=== PATIENT | male | born 1950 | race Caucasian/White ===

== ENCOUNTER 2023-12-24 13:24 | Outpatient (AMB) | payer MEDICARE, SELFPAY ==
--- NOTE | 2023-12-24 13:27 | MHC.OFFVIS ---
Vital Signs 12/24/23 13:33 Height 5 ft 7 in Weight 194 lb BMI 30.4 BP 120/8 L Blood Pressure Location Rt brachial Pulse 70 Pulse Source Pulse Oximeter Pulse Oximetry (%) 98 Oxygen Delivery Method Room Air Intake Visit Reasons: ENP-Sleep Disorder-LVM Intake Note: Patient presents for sleep disorder. Allergies sulfamethoxazole [From Bactrim] Allergy (Verified 12/24/23 13:34) Unknown trimethoprim [From Bactrim] Allergy (Verified 12/24/23 13:34) Unknown Bee Stings Allergy (Unknown, Uncoded 12/24/23 13:34) Unknown HPI Comments Details: 73-yr-old male presents for new in-person patient visit for evaluation of parasomnias. PMH is notable for: Prostate cancer- currently undergoing radiation tx at [facility], Adrenal abnormality, CAD/HTN/HLD, JAROCHO, GERD Pt reports he started having sleep behaviors about 6 months ago. He would wake up yelling, moving, kicking, or pushing his away while using his CPAP. He has never left the bed in his sleep. His PCP started him on Melatonin 3-5mg qhs. The sleep behaviors stopped while on Melatonin, however he felt increased daytime grogginess, off-balance, cognitive cloudiness. He stopped Melatonin about 2 weeks ago, since his has noticed mumbling but no sleep behaviors. Pt is not interested in having a f/u in-lab PSG at this time as he does not sleep well during sleep studies and is currently undergoing prostate CA tx. Pt has used CPAP machine for approx 5 yrs for sleep apnea. Pt had recent f/u w/ Dr Sauceda, who told him his residual apneas were well-controlled. He had initial sleep study d/t snoring, but no longer snores when using CPAP. Per Dr Sauceda's note from November 2023- [employer]?air sense 11 auto?which is set at 6-16 cm H2O. Recent PAP compliance report showed: ? Days used: ,?days 4 hours plus: ,?average usage: 8.2 hours,?average pressure:?7.4 cm H2O, average leak: 7 L/min,?AHI: 0.0. Resp supplier is [employer]. Pt endorsees vivid dreams, rare leg cramp, being off-balance when turning, lightheadedness if he stands too quickly- started when he started carvedilol, hyposmia- for along time. Pt denies hypnogenic hallucinations, voice changes, tremors, constipation, memory issues, falls. Walks regularly. 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 Takes alcohol socially- not r/t the parasomnias. 12/22/2023, [facility], MR Brain (C-/C+) COMPARISON: None. FINDINGS: IAC: There is no mass or abnormal enhancement in the internal auditory canals or cerebellopontine angles. Course and caliber of the 7th and 8th cranial nerves is normal bilaterally. Fluid signal is preserved in the inner ear structures bilaterally. Brainstem demonstrates normal signal. BRAIN and EXTRA-AXIAL SPACES: No significant abnormality of the visualized portions of the brain and extra-axial spaces. EXTRACRANIAL SOFT TISSUES: Visualized portions of the extracranial soft tissues are unremarkable. BONES: Visualized marrow signal is preserved. IMPRESSION: No retrocochlear abnormality to explain the patient?s symptoms. [facility] Medical History (Updated 01/03/24 @ 16:08 by RADHA Armendariz) Hyperbilirubinemia Surgical History H/O cardiac catheterization History of total left knee replacement History of hydrocelectomy H/O colonoscopy Family History Father Congestive heart failure Social History (Updated 12/24/23 @ 13:34 by EMY Bauer) Alcohol intake: current Patient Tobacco Use Status: Never used Tobacco Review of Systems Const All systems reviewed & are unremarkable except as noted in HPI and below Physical Exam Vital Signs: Last Vital Signs Pulse 70 12/24/23 13:33 BP 120/8 L 12/24/23 13:33 Pulse Ox 98 12/24/23 13:33 Oxygen Delivery Method Room Air 12/24/23 13:33 BMI result Body Mass Index 30.4 Const General: no acute distress Resp Effort & Inspection: able to speak in complete sentences Neuro Other: A&O x's 3 Expression intact Soft, hoarse voice. No tremor No BUE tone. BUE STEW: slightly less fluid on right FFM- ok. Foot taps- ok Stands easily, slight stoop, steady gait, multiple steps to turn. Psych Mental Status: mental status grossly normal Speech and movement: Clear speech present Attitude: cooperative Assessment & Plan Assessment & Plan (1) Parasomnia: Code(s): G47.50 - Parasomnia, unspecified Category: Medical (2) Obstructive sleep apnea: Code(s): G47.33 - Obstructive sleep apnea (adult) (pediatric) Category: Medical Plan Discussed that pt's parasomnias do seem c/w REM sleep behaviors, especially as they are occurring despite optimal PAP tx tx. Reviewed that the presence of REM sleep behaviors does raise concern for future development of a neurodegenerative disorder such as Parkinson's, DLB dementia, or dementia. Pt does have some signs that may be seen in such disorders, such as hyposmia, soft/hoarse voice, gait imbalance upon turning- though this maybe multi-factorial. Reviewed brain MRI w/wo- no findings to account for pt's parasomnia s/s. Pt is not interested in additional testing, such as DaTscan, as he is focused on his prostate Ca tx at this time. Re-trial Melatonin at 1mg- try taking q evening, in hopes this alleviates residual am/daytime effects. Continue 6-16 cm H2O nightly > 4 hrs as pt has good clinical effect from use and low residual AHI. Pt does ask if we can manage his CPAP going forward, which we can do. Will request updated compliance data. Future considerations: Trial of low dose clonazepam. Follow-up in 6 months or sooner prn. Coding Level of Care Code New Pt Level 4 (68143) Diagnoses Parasomnia G47.50 Obstructive sleep apnea G47.33
[2023-12-24 13:33] VITALS: BP 120/8; PULSE 70; O2SAT 98; BMI 30.4
== END 2023-12-24 14:37 | disposition home or self-care (01) ==
PROVIDERS: PCP Internal Medicine; Visit Provider Nurse Practitioner Family
DX: G47.50 Parasomnia, unspecified (principal); G47.33 Obstructive sleep apnea (adult) (pediatric)
CPT/HCPCS: 99204

== ENCOUNTER → 2023-12-24 13:24 | Outpatient (BNVA) | payer MEDICARE, SELFPAY | PROVIDERS: PCP Internal Medicine; Visit Provider Nurse Practitioner Family | DX: G47.50 Parasomnia, unspecified (principal); G47.33 Obstructive sleep apnea (adult) (pediatric) | CPT/HCPCS: 99202 ==

== ENCOUNTER 2024-07-17 14:14 | Outpatient (AMB) | payer MEDICARE, SELFPAY ==
[2024-07-17 14:39] VITALS: BP 126/72; PULSE 84; O2SAT 97; BMI 30.7
--- NOTE | 2024-07-17 14:39 | A.OFFVIS_ITS ---
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 Since has felt more fatigue, hot flashes a/w moodiness. 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 He denies any interval parasomnias. Pt denies cognitive difficulties. Rarely may forget a name of an actor. No difficulties w/ returning to work. If he gets up and turns quickly, he will briefly feel off-balance. He has a h/o orthostatic lightheadedness r/t his carvedilol tx. Trying to make sure he is drinking enough water/fluids, as this helps. Sleeping better. Taking a chamomielle tea or a glass a wine a few evenings per week. Stopped Melatonin- as even with 1mg dose, he woke up feeling unwell. Patient reports he is compliant with his Pap therapy. He does have an adjustable bed, 12/24/23 Initial HPI: Pt reports he started having sleep behaviors about 6 months ago. He would wake up yelling, moving, kicking, or pushing his away while using his CPAP. He has never left the bed in his sleep. His PCP started him on Melatonin 3-5mg qhs. The sleep behaviors stopped while on Melatonin, however he felt increased daytime grogginess, off-balance, cognitive cloudiness. He stopped Melatonin about 2 weeks ago, since his has noticed mumbling but no sleep behaviors. Pt is not interested in having a f/u in-lab PSG at this time as he does not sleep well during sleep studies and is currently undergoing prostate CA tx. Pt has used CPAP machine for approx 5 yrs for sleep apnea. Pt had recent f/u w/ Dr Sauceda, who told him his residual apneas were well-controlled. He had initial sleep study d/t snoring, but no longer snores when using CPAP. Per Dr Sauceda's note from November 2023- [employer]?air sense 11 auto?which is set at 6- 16 cm H2O. Recent PAP compliance report showed: ? Days used: ,?days 4 hours plus: ,?average usage: 8.2 hours,?average pressure:?7.4 cm H2O, average leak: 7 L/min,?AHI: 0.0. Resp supplier is [employer]. Pt endorsees vivid dreams, rare leg cramp, being off-balance when turning, lightheadedness if he stands too quickly- started when he started carvedilol, hyposmia- for along time. Pt denies hypnogenic hallucinations, voice changes, tremors, constipation, memory issues, falls. Walks regularly. 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 Takes alcohol socially- not r/t the parasomnias. 12/22/2023, [facility], MR Brain (C-/C+) COMPARISON: None. FINDINGS: IAC: There is no mass or abnormal enhancement in the internal auditory canals or cerebellopontine angles. Course and caliber of the 7th and 8th cranial nerves is normal bilaterally. Fluid signal is preserved in the inner ear structures bilaterally. Brainstem demonstrates normal signal. BRAIN and EXTRA- AXIAL SPACES: No significant abnormality of the visualized portions of the brain and extra-axial spaces. EXTRACRANIAL SOFT TISSUES: Visualized portions of the extracranial soft tissues are unremarkable. BONES: Visualized marrow signal is preserved. IMPRESSION: No retrocochlear abnormality to explain the patient?s symptoms. [facility] Medical History (Updated 01/03/24 @ 16:08 by RADHA Armendariz) Hyperbilirubinemia Surgical History H/O cardiac catheterization History of total left knee replacement History of hydrocelectomy H/O colonoscopy Family History Father Congestive heart failure Social History Alcohol intake: current Patient Tobacco Use Status: Never used Tobacco Physical Exam Vital Signs: Last Vital Signs Pulse 84 07/17/24 14:39 BP 126/72 07/17/24 14:39 Pulse Ox 97 07/17/24 14:39 Oxygen Delivery Method Room Air 07/17/24 14:39 BMI result Body Mass Index 30.7 Const General: no acute distress Resp Effort & Inspection: able to speak in complete sentences Neuro Other: A&O x's 3 Expression intact Soft voice. No tremor No BUE tone. FFM- ok. Foot taps- ok Stands easily, slight stoop, steady gait. Psych Mental Status: mental status grossly normal Speech and movement: Clear speech present Attitude: cooperative Assessment & Plan Assessment & Plan (1) Parasomnia: Code(s): G47.50 - Parasomnia, unspecified Category: Medical (2) Obstructive sleep apnea: Code(s): G47.33 - Obstructive sleep apnea (adult) (pediatric) Category: Medical Plan Pt denies interval parasomnias. He has stopped Melatonin- not tolerated. December 2023 brain MRI w/wo- no findings to account for pt's parasomnia s/s. Continue to monitor parasomnias despite optimal PAP tx, which do appear to be c/w REM sleep behaviors, as well as hyposmia, soft/hoarse voice, gait imbalance upon turning. Reviewed again that REM sleep behaviors can be seen up to 12 or 15 years prior to the development of a neurodegenerative disorder such as Parkinson's, DLB dementia, or dementia. Continue APAP 6-16 cm H2O nightly > 4 hrs as pt has good clinical effect from use and low residual AHI. Will request updated PAP compliance data. Future considerations: Trial of low dose clonazepam. Follow-up in 6 months or sooner prn. Coding Level of Care Code Est Pt Level 3 (93289) Diagnoses Parasomnia G47.50 Obstructive sleep apnea G47.33
--- OUTSIDE RECORDS SUMMARY | 2024-07-19 16:06 | XMS_ITS | Continuity of Care Document ---
Author Organization [place] - [facility] Address [address] [address] Assessment Encounter Date Assessment Date Assessment LastModified by Organization Details LastModified Time 04/26/2024 04/26/2024 Patient's hearing remains essentially stable and reprogramming is not recommended at this time given the patient's satisfaction with sound quality. The devices were previously programmed using the Audioscan Best Bidit hearing aid analyzer and real-ear verification was not repeated today. Hearing devices were noted to be generally free of debris. Using a listening scope, the string laster & microphone were found to be in working order. The microphones were functioning without any abberant noise or artifact. Reviewed with patient the importance of annual appointments to ensure that the devices are working to their best potential and to rule out any changes in hearing or need to reprogram the devices. Urgent visits can always be requested or the patient can also utilize our drop-off repair program. Patient is interested in trying the new CROS which is on order raquel ARROYO. Follow up for fitting. [email or web address] Not available 04/26/2024 16:07:07 Plan of Treatment Reminders Order Date Submit Date Provider Last Modified By Organization Details Last Modified Time Details Appointments None record ed. Lab None record ed. Referral None record ed. Procedures None record ed. Surgeries None record ed. Imaging None record ed. Medication Orders None record ed. Patient TargetsNo targets recorded. Patient InstructionsNo instructions recorded. Reason for Referral None Reported. Results Created Date Observation Date Name Description Value Unit Range Abnormal Flag Note LastModifiedBy Organization Detail LastModifiedTime 03/29/2005/02/2019 imagi ng/di agnos tic resul t No observ ation record ed. [email or web address] Not Available 05:41:51 03/29/2005/22/2020 imagi ng/di agnos tic resul t No observ ation record ed. [email or web address] Not Available 05:42:09 03/29/2005/26/2023 imagi ng/di agnos tic resul t No observ ation record ed. [email or web address] Not Available 05:42:10 03/29/2005/28/2021 imagi ng/di agnos tic resul t No observ ation record ed. [email or web address] Not Available 05:42:13 03/29/2006/03/2022 imagi ng/di agnos tic resul t No observ ation record ed. [email or web address] Not Available 05:42:15 03/29/20 24 11/05/2021 audio gram No observ ation record ed. [email or web address] Not Available 05:42:17 03/29/20 24 11/17/2021 audio gram No observ ation record ed. [email or web address] Not Available 05:42:18 03/29/20 24 12/03/2021 audio gram No observ ation record ed. [email or web address] Not Available 05:42:24 03/29/20 24 05/02/2019 audio gram No observ ation record ed. [email or web address] Not Available 05:42:26 03/29/20 24 05/22/2020 audio gram No observ ation record ed. [email or web address] Not Available 05:42:37 03/29/20 24 05/26/2023 audio gram No observ ation record ed. [email or web address] Not Available 05:42:38 03/29/20 24 05/28/2021 audio gram No observ ation record ed. [email or web address] Not Available 05:42:39 03/29/20 24 06/03/2022 audio gram No observ ation record ed. [email or web address] Not Available 05:42:40 04/27/20 24 audio gram No observ ation record ed. [email or web address] Not Available 2023 15:14:54 Result Notes None recorded. Problems Name Problem SNOMED Code Status Onset Date Resolution Date Notes Provider Name and Address Organization Details Recorded Time Disorder of right Eustachia n tube 93973679772 59958 Active 2016 Other specified disorders of Eustachia n tube, right ear; Note: Date Diagnosed : 09/28/2016 10:11 AM (H69.81) Not Available [facility] 4 02:21:49 Cough 07299716 Active 2015 Cough; Note: Date Diagnosed : 6 8:30 AM (R05) Not Available [facility] 4 02:22:08 Mixed conductiv e and sensorine ural hearing loss of right ear 49640753464 105 Active 2016 Mixed conductiv e and sensorine ural hearing loss, unilatera l, right ear with restricte d hearing on the contralat eral side; Note: Date Diagnosed : 09/28/2016 10:11 AM (H90.A31) Not Available [facility] 4 02:22:15 Sensorine ural hearing loss of bilateral ears 108418999 Active 2014 Sensorine ural hearing loss, bilateral ; Note: Date Diagnosed : 5 8:45 AM (H90.3) Not Available [facility] 4 02:21:38 Posterior rhinorrhe a 24361387 Active 2015 Postnasal drip; Note: Date Diagnosed : 6 8:30 AM (R09.82) Not Available [facility] 4 02:22:02 Unilatera l sensorine ural hearing loss with unrestric mabel hearing on the contralat eral side Active 2014 Sensorine ural HL, unilatera l; Note: Date Diagnosed : 12/28/2014 2:16 PM (389.15) Not Available [facility] 4 02:22:05 Chronic rhinitis 53258181 Active 2015 Chronic rhinitis; Note: Date Diagnosed : 6 9:04 AM (J31.0) Not Available [facility] 4 02:21:56 Deviated nasal septum 549474348 Active 2015 Deviated nasal septum; Note: Date Diagnosed : 6 8:30 AM (J34.2) Not Available [facility] 4 02:21:56 Essential hypertens ion 94548124 Active 2023 Essential (primary) hypertens ion; Note: Date Diagnosed : 11/22/2023 1:35 PM (I10) Not Available [facility] 4 02:22:04 Dizziness and giddiness 072296484 Active 2023 Light-hea dedness; Note: Date Diagnosed : 11/22/2023 1:34 PM (R42) Not Available [facility] 4 02:22:09 Problem Notes None recorded. Procedures Surgical History Date Name Laterality Status Provider Name and Address Organization Details Recorded Time 4 Air only Audio (34528) completed VIK SHELTON, [address], [address], [facility] 04/26/2024 16:07:10 4 SRT & Speech Recognition (47969) completed VIK SHELTON [address], [address], [facility] 04/26/2024 16:07:16 Imaging Results None recorded. Procedure Notes None recorded. Medical Equipment None Reported. Allergies Allergen ID Allergen Name Allergen Category Reaction Reaction Severity Criticality Documentation Date Start Date Code Code System Note Provider Name and Address Organization Details Recorded Time 40657 melatonin medicatio n other Not available Not available 12/21/2023 6711 RxNorm React ion: other react ion, Unkno wn; Not Available [facility] 4 00:52:31 99725 Bactrim medicatio n other Not available Not available 12/21/2023 72978 9 RxNorm React ion: other react ion, Unkno wn; Not Available [facility] 4 00:52:40 Medications Name Sig Start Date Stop Date Status Note LastModified by Organization Details LastModified Time carvedilo l 6.25 mg tablet 2019 active Medicati on ID: [id number] B rand Name: carvedil ol Send Method: E-Prescr ibed Sub s Allowed: subs OK Medic ationGen ericName : carvedil ol Not Available Not Available Not Available cetirizin e 10 mg tablet TAKE 1 TABLET BY MOUTH DAILY active Not Available Not Available No t Available Elton Low Dose Aspirin 81 mg tablet,de layed release active Medicati on ID: [id number] B rand Name: Aspirin Low Dose Sen d Method: E-Prescr ibed Sub s Allowed: subs OK Medic ationGen ericName : Aspirin Low Dose Not Available Not Available Not Available amlodipin e 2.5 mg tablet TAKE 1 TABLET BY MOUTH DAILY active Not Available Not Available No t Available melatonin 3 mg tablet TAKE 1 tablet by MOUTH AT bedtime MAY INCREASE by 3 MG steps UNTIL REM SLEEP disorder resolved TO A max DOSE OF 15 MG] active Not Available Not Available No t Available chlorthal idone 25 mg tablet 2019 active Medicati on ID: [id number] B rand Name: chlortha lidone S end Method: E-Prescr ibed Sub s Allowed: subs OK Medic ationGen ericName : chlortha lidone Not Available Not Available Not Available amlodipin e 5 mg tablet 05/22 completed Medicati on ID: [id number] B rand Name: amlodipi ne Send Method: E-Prescr ibed Sub s Allowed: subs OK Medic ationGen ericName : amlodipi ne Not Available Not Available Not Available ciproflox acin 500 mg tablet active Medicati on ID: [id number] B rand Name: ciproflo xacin HCl Send Method: E-Prescr ibed Sub s Allowed: subs OK Medic ationGen ericName : ciproflo xacin HCl Not Available Not Available Not Available omeprazol e 40 mg capsule,d elayed release 2019 active Medicati on ID: [id number] B rand Name: omeprazo le Send Method: E-Prescr ibed Sub s Allowed: subs OK Medic ationGen ericName : omeprazo le Not Available Not Available Not Available carvedilo l 3.125 mg tablet TAKE 1 TABLET BY MOUTH TWICE DAILY active Not Available Not Available No t Available potassium chloride ER 20 mEq tablet,ex tended release(p art/cryst ) 2019 active Medicati on ID: [id number] B rand Name: lela damon chloride Send Method: E-Prescr ibed Sub s Allowed: subs OK Medic ationGen ericName : lela damon chloride Not Available Not Available Not Available tamsulosi n 0.4 mg capsule TAKE 1 CAPSULE BY MOUTH DAILY active Not Available Not Available No t Available cephalexi n 500 mg capsule TAKE 1 CAPSULE BY MOUTH 4 TIMES DAILY FOR 7 DAYS active Not Available Not Available No t Available nitroglyc suni 0.4 mg sublingua l tablet TAKE 1 tablet under the tongue Every 5 minutes as needed for chest pain; not to exceed 3 doses/15 min--if pain persists , seek medical attentio n active Not Available Not Available No t Available sertralin e 25 mg tablet TAKE 1 TABLET BY MOUTH DAILY active Not Available Not Available No t Available omeprazol e 20 mg capsule,d elayed release TAKE 1 CAPSULE BY MOUTH TWICE DAILY active Not Available Not Available No t Available mupirocin 2 % topical ointment APPLY 1 applicat ion Topicall y 3 times a day,x10 days active Not Available Not Available No t Available lisinopri l 40 mg tablet 05/22 completed Medicati on ID: [id number] D uration Value: 90 Brand Name: lisinopr il Send Method: E-Prescr ibed Sub s Allowed: subs OK Speci al Instruct ion: TAKE 1 TABLET BY MOUTH DAILY Me dication GenericN bryn: lisinopr il Not Available Not Available Not Available losartan 100 mg tablet TAKE 1 TABLET BY MOUTH DAILY active Not Available Not Available No t Available eplerenon e 50 mg tablet TAKE 1 TABLET BY MOUTH DAILY active Not Available Not Available No t Available ezetimibe 10 mg tablet TAKE 1 TABLET BY MOUTH DAILY active Not Available Not Available No t Available rosuvasta tin 40 mg tablet TAKE 1 TABLET BY MOUTH DAILY active Not Available Not Available No t Available melatonin 1 mg tablet take 1 tablet (1 mg) at bedtime and every 7 days increase by one mg/dose until sleep disturba nce resolved active Not Available Not Available No t Available hydrochlo rothiazid e Take 1 tablet by mouth once a day 05/22 completed Medicati on ID: [id number] D uration Value: 30 Brand Name: hydrochl orothiaz dior Send Method: E-Prescr ibed Sub s Allowed: subs OK Medic ationGen ericName : hydrochl orothiaz dior Not Available Not Available Not Available salsalate 05/22 completed Medicati on ID: [id number] B rand Name: salsalat e Send Method: E-Prescr ibed Sub s Allowed: subs OK Medic ationGen ericName : salsalat e Not Available Not Available Not Available Centrum Silver 05/22 completed Medicati on ID: [id number] B rand Name: centrum silver S end Method: E-Prescr ibed Sub s Allowed: subs OK Medic ationGen ericName : centrum silver Not Available Not Available Not Available Ecotrin Low Strength 05/22 completed Medicati on ID: [id number] B rand Name: Ecotrin low strength Send Method: E-Prescr ibed Sub s Allowed: subs OK Medic ationGen ericName : Ecotrin low strength Not Available Not Available Not Available Crestor 05/22 completed Medicati on ID: [id number] B rand Name: crestor Send Method: E-Prescr ibed Sub s Allowed: subs OK Medic ationGen ericName : crestor Not Available Not Available Not Available Lovaza 05/22 completed Medicati on ID: [id number] B rand Name: lovaza S end Method: E-Prescr ibed Sub s Allowed: subs OK Medic ationGen ericName : lovaza Not Available Not Available Not Available Vitamin D3 50 mcg (2,000 unit) capsule 05/22 completed Medicati on ID: [id number] B rand Name: Vitamin D3 Send Method: E-Prescr ibed Sub s Allowed: subs OK Medic ationGen ericName : Vitamin D3 Not Available Not Available Not Available Flonase Allergy Relief 50 mcg/actua tion nasal spray,cali pension 05/22 completed Medicati on ID: [id number] B rand Name: Flonase Allergy Relief S end Method: E-Prescr ibed Sub s Allowed: subs OK Medic ationGen ericName : Flonase Allergy Relief Not Available Not Available Not Available Vitals None Recorded Social History None recorded. Functional Status None recorded. Mental Status None recorded. Family History Nothing Reported. Medical History No medical history recorded. Past Encounters Encounter ID Performer Location Encounter Start Date Encounter Closed Date Diagnosis/Indication Diagnosis SNOMED-CT Code Diagnosis ICD10 Code [id number] [facility]ameka [facility]NE [facility] [address] [place] [address] 04/05/2024 16:12:26 04/06/2024 07:09:56 Sensorineural hearing loss of bilateral ears [id number] H90.3 [id number] Tameka BROWNE [facility] [place] 100 [facility], [facility] 100 [place] [address] 04/26/2024 14:52:59 04/27/2024 07:09:45 Sensorineural hearing loss of bilateral ears [id number] H90.3 Health Concerns Section Related Observation LastModified by Organization Detai ls LastModified Time None Recorded Concern Status LastModified by Organization Details LastModified Time None Recorded Payers Encounter Date Sequence Insurance Name Policy Number Policy Miller Covered Member ID Miller Member ID Guarantor Name 04/26/2024 1 [place]: [employer] Deejay Gonsalez [id number] Deejay Gonsalez 04/26/2024 2 [facility] (MEDICARE SUPPLEMENT) Deejay Wallace [id number] Deejay Gonsalez Notes Date Note Type Note Provider Name and Address Organization Details Recorded Time 04/26/2024 text/html Patient returned for their annual fitting of amplification. They {{reported a change in their hearing ability.* reported stable hearing.}} There was no concern regarding the {{hearing devices* hearing device}} and the system was reported to be in working order. Tameka BROWNE [address] [facility],[place] [address], [place], [address], [facility] - [facility] 04/26/2024 16:07:49
--- OUTSIDE RECORDS SUMMARY | 2024-07-19 16:06 | XMS_ITS | Continuity of Care Document ---
Author Organization [facility] Address [address] [place] [address] Phone Care Team Providers Care Chief Power Dispatcher Name Role Phone Enrrique Hernandez MD Unavailable [...] in the morning Not Available - Active [place] 5 mg-325 mg tablet take 1 tablet [...] - In itial Vein Vasc Embo-w/Imaging,venous ANGIOGRAPHY COUTURE ALTERATIONS DRESSMAKER TRANSCATH INTRO IV STENT TRANSCATH THERAPY EMBOLIZATION 15 To Be Coded ARTERIOVENOUS SHUNT W/ IMAGING 14 Vasc Embo-w/Imaging,venous VENOGRAPHY EXT UNILAT TRANSCATH THERAPY EMBOLIZATION 14 CONSCIOUS SEDATION SELECT CATH PLCMNT VENOUS 1ST 4 To Be Coded ARTERIOVENOUS SHUNT W/ IMAGING 14 ARTERIOVENOUS SHUNT 2ND ACCESS W/IMAGING SELECT CATH PLCMNT ART INIT 2ND 014 ANGIOPLASTY PERC VENOUS Vasc Embo-w/Imaging,venous ANGIO EXTREMITY UNILAT ANGIOGRAPHY COUTURE ALTERATIONS DRESSMAKER TRANSCATH THERAPY EMBOLIZATION 14 To Be Coded [...] Diagnoses Date Provider Providers Copied on Encounter [facility], [address] [place] [address], [id number], [place] tel:[phone] [facility] End stage renal diseaseTo Be Coded 5 Mary Osuna. [address] [place] [address], [id number], [place]. tel:[phone] Referring Provider: Gaudencio Quintana, [address], [address]. tel:[phone] [facility], [address] [place] [address], [id number], [place] tel:[phone] [facility] No Information 5 Bob Sanford. [address] [place] [address], [id number]. tel:[phone] Referring Provider: Gaudencio Quintana, [address] [address], [place], [address]. tel:[phone] OFFICE/OUTPATI ENT VISIT, EST [facility], [address] [place] [address], [id number], [place] tel:[phone] [facility] evaluation for AV-fistula creation (chief complaint) No Information 5 Jose D Villalba. [address] [place] [address], [address], [place], [id number], [place]. tel:[phone] Referring Provider: Gaudencio Quintana, [address] [address], [place], [address]. tel:[phone] [facility], [address] [place] [address], [id number], [place] tel:[phone] [facility] No Information 5 Melinda Villalba. [address] [place] [address], [id number]. tel:[phone] Referring Provider: Gaudencio Quintana, [address] [address], [place], [address]. tel:[phone] [facility], [address] [place] [address], [id number], [place] tel:[phone] [facility] No Information 4 Melinda Villalba. [address] [place] [address], [id number]. tel:[phone] Referring Provider: Gaudencio Quintana, [address] [address], [place], [address]. tel:[phone] [facility], [address] [place] [address], [id number], [place] tel:[phone] No Information 4 Mary Osuna. [address] [place] [address], [id number], [place]. tel:[phone] Referring Provider: Gaudencio Quintana, [address] [facility] [address], [place], [address]. tel:[phone] [facility], [address] [place] [address], [id number], [place] [phone] [facility] No Information 4 Jose D Villalba. [address] [place] [address], [address] [place] [address], [id number], [place]. tel:[phone] Referring Provider: Gaudencio Quintana, [address] [address], [place], [address]. tel:[phone] [facility], [address] [place] [address], [id number], [place] tel:[phone] [facility] No Information 4 Jose D Villalba. [address] [place] [address], [address] [place] [address], [id number], [place]. tel:[phone] Referring Provider: Gaudencio Quintana, [address] [address], [place], [address]. tel:[phone] Office visit, new patient - comprehensive moderate [facility], [address] [place] [address], [id number], [place] tel:[phone] [facility] End Stage Renal Disease (chief complaint) No Information 4 Jose D Villalba. [address] [place] [address], [address] [place] [address], [id number], [place]. tel:[phone] Referring Provider: Guadencio Quintana, [address] [address], [place], [address]. tel:[phone] [facility], [place], [address] [place] [address], [id number], [place] tel:[phone] [facility] No Information 4 Tavia Edmond. [address] [place] [address], [id number], [place]. tel:[phone] Referring Provider: Gaudencio Quintana, [address] [place] [address], [id number]. tel:[phone] Family History Family Member Type Diagnosis Age At Onset No Information Immunizations Vaccine Date Status Comments pneumo (2 yrs or older) (PPV23) administered Note: Previously Giv en ; Source: New Immunization Record pneumo (2 yrs or older) (PPV23) administered Note: Previously Giv en ; Source: New Immunization Record Payers Payer name Insurance type Covered constitution party ID Authoriza tion(s) No Information Social [...]
--- OUTSIDE RECORDS SUMMARY | 2024-07-19 16:06 | XMS_ITS | Continuity of Care Document ---
Author Organization [place] - [facility] Address [address] [address] Assessment Encounter Date Assessment Date Assessment LastModified by Organization Details LastModified Time 05/17/2024 05/17/2024 The devices were programmed wirelessly using the chemical research technician's software in [facility]. We reviewed using real-ear verification and adjusting the settings to best match the patient's hearing needs in order to obtain the best outcome. Real ear not performed since this system is not amplifying sound and there is no need to reference amplification targets. The patient's concerns about using the devices were discussed. We reviewed the device options and what accessories are included. Reviewed features such as bluetooth, adjusting the volume control, and the use of a multimemory button for additional programs. Changing the wax filter was demonstrated. At the end of the visit, the patient practiced insertion/remova l and reported no pain or discomfort. Follow up in two to four weeks to discuss progress and address any concerns. The patient was also encouraged to utilize our drop-off servicing system in the unfortunate event that something happens to their device and/or to contact me through phone or email at their convenience. [email or web address] Not available 05/17/2024 08:49:24 Plan of Treatment Reminders Order Date Submit [...] Abnormal Flag Note LastModifiedBy Organization Detail LastModifiedTime 04/27/20 24 audio gram No observ ation record ed. BARCODE Not Available 2023 15:14:54 Result Notes None recorded. Problems Name Problem SNOMED Code Status Onset Date Resolution Date Notes Provider Name and Address Organization Details Recorded Time Disorder of right Eustachia n tube 65293045575 46225 Active 2016 Other specified disorders of Eustachia n tube, right ear; Note: Date Diagnosed : 09/28/2016 10:11 AM (H69.81) Not Available [facility] 4 02:21:49 Cough 39823678 Active 2015 Cough; Note: Date Diagnosed : 6 8:30 AM (R05) Not Available [facility] 4 02:22:08 Mixed conductiv e and sensorine ural hearing loss of right ear [id number] 105 Active 2016 Mixed conductiv e and sensorine ural hearing loss, unilatera l, right ear with restricte d hearing on the contralat eral side; Note: Date Diagnosed : 09/28/2016 10:11 AM (H90.A31) Not Available [facility] 4 02:22:15 Sensorine ural hearing loss of bilateral ears 428361817 Active 2014 Sensorine ural hearing loss, bilateral ; Note: Date Diagnosed : 5 8:45 AM (H90.3) Not Available [facility] 4 02:21:38 Posterior rhinorrhe a 96459182 Active 2015 Postnasal drip; Note: Date Diagnosed : 6 8:30 AM (R09.82) Not Available Counts include 234 beds at the [facility] 4 02:22:02 Unilatera l sensorine ural hearing loss with unrestric mabel hearing on the contralat eral side Active 2014 Sensorine ural HL, unilatera l; Note: Date Diagnosed : 12/28/2014 2:16 PM (389.15) Not Available [facility] 4 02:22:05 Chronic rhinitis 42139678 Active 2015 Chronic rhinitis; Note: Date Diagnosed : 6 9:04 AM (J31.0) Not Available [facility] 4 02:21:56 Deviated nasal septum 913341888 Active 2015 Deviated nasal septum; Note: Date Diagnosed : 6 8:30 AM (J34.2) Not Available Counts include 234 beds at the [facility] 4 02:21:56 Essential hypertens ion 24488623 Active 2023 Essential (primary) hypertens ion; Note: Date Diagnosed : 11/22/2023 1:35 PM (I10) Not Available Counts include 234 beds at the [facility] 4 02:22:04 Dizziness and giddiness 584154881 Active 2023 Light-hea dedness; Note: Date Diagnosed : 11/22/2023 1:34 PM (R42) Not Available Counts include 234 beds at the [facility] 4 02:22:09 Problem Notes None recorded. Procedures Surgical History Date Name Laterality Status Provider Name and Address Organization Details Recorded Time 4 Air only Audio (32498) completed VIK SHELTON, [facility] [address] [facility],[place] [address], [place], [address], [facility] 04/26/2024 16:07:10 4 SRT & Speech Recognition (14259) completed VIK SHELTON, [place] [address] [facility],[place] [address], [place], [address], [facility] 04/26/2024 16:07:16 Imaging Results None recorded. Procedure Notes None recorded. Medical Equipment None Reported. Allergies Allergen ID Allergen Name Allergen Category Reaction Reaction Severity Criticality Documentation Date Start Date Code Code System Note Provider Name and Address Organization Details Recorded Time 34510 melatonin medicatio n other Not available Not available 12/21/2023 6711 RxNorm React ion: other react ion, Unkno wn; Not Available Counts include 234 beds at the [facility] 4 00:52:31 17157 Bactrim medicatio n other Not available Not available 12/21/2023 10614 9 RxNorm React ion: other react ion, Unkno wn; Not Available Counts include 234 beds at the [facility] 4 00:52:40 Medications Name Sig Start Date Stop Date Status Note LastModified by Organization Details LastModified Time carvedilo l 6.25 mg tablet 2019 active Medicati on ID: [id number] B rand Name: carvedil ol Send Method: E-Prescr ibed Sub s Allowed: subs OK Medic ationGen ericName : carvedil ol Not Available Not Available Not Available cetirizin e 10 mg tablet TAKE 1 TABLET BY MOUTH DAILY active Not Available Not Available No t Available Elton Low Dose Aspirin 81 mg tablet,de layed release active Medicati on ID: 457248 B rand Name: Aspirin Low Dose Sen [...] mg tablet 2019 active Medicati on ID: [id number] B rand Name: chlortha lidone S end Method: E-Prescr ibed Sub s Allowed: subs OK Medic ationGen ericName : chlortha lidone Not Available Not Available Not Available amlodipin e 5 mg tablet 05/22 completed Medicati on ID: [id number] B rand Name: amlodipi ne Send Method: E-Prescr ibed Sub s Allowed: subs OK Medic ationGen ericName : amlodipi ne Not Available Not Available Not Available ciproflox acin 500 mg tablet active Medicati on ID: [id number] B rand Name: ciproflo xacin HCl Send Method: E-Prescr ibed Sub s Allowed: subs OK Medic ationGen ericName : ciproflo xacin HCl Not Available Not Available Not Available omeprazol e 40 mg capsule,d elayed release 2019 active Medicati on ID: [id number] B rand Name: omeprazo le Send Method: E-Prescr ibed Sub s Allowed: subs OK Medic ationGen ericName : omeprazo le Not Available Not Available Not Available carvedilo l 3.125 mg tablet TAKE 1 TABLET BY MOUTH TWICE DAILY active Not Available Not Available No t Available potassium chloride ER 20 mEq tablet,ex tended release(p art/cryst ) 2019 active Medicati on ID: [id number] B rand Name: potassiu m chloride Send Method: E-Prescr ibed Sub s Allowed: subs OK Medic [facility] ericName : lela damon chloride Not Available [...] mg tablet 05/22 completed Medicati on ID: [id number] D uration Value: 90 Brand Name: lisinopr [...] a day 05/22 completed Medicati on ID: [id number] D uration Value: 30 Brand Name: hydrochl orothiaz dior Send Method: E-Prescr ibed Sub s Allowed: subs OK Medic ationGen ericName : hydrochl orothiaz dior Not Available Not Available Not Available salsalate 05/22 completed Medicati on ID: [id number] B rand Name: salsalat e Send Method: E-Prescr ibed Sub s Allowed: subs OK Medic ationGen ericName : salsalat e Not Available Not Available Not Available Centrum Silver 05/22 completed Medicati on ID: [id number] B rand Name: centrum silver S end Method: E-Prescr ibed Sub s Allowed: subs OK Medic ationGen ericName : centrum silver Not Available Not Available Not Available Ecotrin Low Strength 05/22 completed Medicati on ID: [id number] B rand Name: Ecotrin low strength Send Method: E-Prescr ibed Sub s Allowed: subs OK Medic ationGen ericName : Ecotrin low strength Not Available Not Available Not Available Crestor 05/22 completed Medicati on ID: [id number] B rand Name: crestor Send Method: E-Prescr ibed Sub s Allowed: subs OK Medic ationGen ericName : crestor Not Available Not Available Not Available Lovaza 05/22 completed Medicati on ID: [id number] B rand Name: lovaza S end Method: E-Prescr ibed Sub s Allowed: subs OK Medic ationGen ericName : lovaza Not Available Not Available Not Available Vitamin D3 50 mcg (2,000 unit) capsule 05/22 completed Medicati on ID: [id number] B rand Name: Vitamin D3 Send Method: E-Prescr ibed Sub s Allowed: subs OK Medic ationGen ericName : Vitamin D3 Not Available Not Available Not Available Flonase Allergy Relief 50 mcg/actua tion nasal spray,cali pension 05/22 completed Medicati on ID: [id number] B rand Name: Flonase Allergy Relief S [...] Diagnosis/Indication Diagnosis SNOMED-CT Code Diagnosis ICD10 Code [id number] Tameka BROWNE [place]RIQUEZ - [place] [address] [facility],[address] [place] [address] 04/26/2024 14:52:59 04/27/2024 07:09:45 Sensorineural hearing loss of bilateral ears [id number] H90.3 [id number] Tameka BROWNE [place]RIQUEZ - [place] [address] [facility],[address] [place] [address] 05/17/2024 09:49:20 05/17/2024 15:59:27 Sensorineural hearing loss of bilateral ears [id number] H90.3 Health Concerns Section Related Observation LastModified by Organization Detai ls LastModified Time None Recorded Concern Status LastModified by Organization Details LastModified Time None Recorded Payers Encounter Date Sequence Insurance Name Policy Number Policy Miller Covered Member ID Miller Member ID Guarantor Name 05/17/2024 1 MEDICARE [place]: [employer] Deejay Gonsalez [id number] Deejay Gonsalez 05/17/2024 2 [facility] [employer] OPTIONS (MEDICARE SUPPLEMENT) Deejay Gonsalez [id number] Deejay Gonsalez Notes Date Note Type Note Provider Name and Address Organization Details Recorded Time 05/17/2024 text/html Patient returned for an orientation fitting of {{hearing devices a hearing device in the right ear a hearing device in the left ear CROS hearing system#}}. They are {{a first time user a longstanding user of amplification a longstanding user of these devices#}}. They reported significant difficulty communicating and understanding speech and {{hearing devices were* the hearing device was}} ordered through a 3rd democrat vendor to be fitted at our office. The patient had selected this make and model for their lifestyle and audiological needs. Tameka BROWNE [address] [facility] [address], [place], [address], [facility] - [facility] 05/17/2024 11:47:26
== END 2024-07-17 15:48 | disposition home or self-care (01) ==
PROVIDERS: PCP Internal Medicine; Visit Provider Nurse Practitioner Family
DX: G47.50 Parasomnia, unspecified (principal); G47.33 Obstructive sleep apnea (adult) (pediatric)
CPT/HCPCS: 99213

== ENCOUNTER → 2024-07-17 14:14 | Outpatient (BNVA) | payer MEDICARE, SELFPAY | PROVIDERS: PCP Internal Medicine; Visit Provider Nurse Practitioner Family | DX: G47.50 Parasomnia, unspecified (principal); G47.33 Obstructive sleep apnea (adult) (pediatric) | CPT/HCPCS: 99212 ==

== ENCOUNTER 2025-01-16 14:04 | Outpatient (AMB) | payer MEDICARE, SELFPAY ==
--- NOTE | 2025-01-16 14:17 | MHC.OFFVIS ---
Vital Signs 01/16/25 14:19 Height 5 ft 7 in Weight 193 lb BMI 30.2 BP 120/82 Blood Pressure Location Lt brachial Position Sitting Pulse 84 Pulse Source Pulse Oximeter Pulse Oximetry (%) 95 Oxygen Delivery Method Room Air Intake Visit Reasons: 6 Month F/U Intake Note: Patient presents 6 month follow up for JAROCHO. Accompanied by: Self / Same As Patient Allergies sulfamethoxazole [From Bactrim] Allergy (Verified 01/16/25 14:22) Unknown trimethoprim [From Bactrim] Allergy (Verified 01/16/25 14:22) Unknown Bee Stings Allergy (Unknown, Uncoded 12/24/23 13:34) Unknown HPI Comments Details: 74-yr-old male presents for f/u of parasomnias w/ PMH is notable for: Prostate CA- s/p Rx tx in 2023- managed by [facility], Adrenal abnormality, CAD/HTN/HLD, JAROCHO, GERD Pt reports he has continued his Prostate CA tx- s/p radiation tx and had his last scheduled hormonal tx- however going forward the hormonal tx will be given based on future PSA levels. . Pt is now undergoing tx for bilateral nephrolithesis, underwent a right stone extraction/temporary stent placement, and then after the stent was removed, he had UTI, and ultimately had another temporary stent placement. He states they are hoping to be able to tx the left kidney stone w/ lithrotripsy. He notes that he has some ureter adhesions/stricture d/t the h/o radiation tx. Pt also has been having rectal bleeding- this is suspected to be d/t rectal proctitis also d/t the Rx tx. Can have some constipation but also some loose stools. GI started him on metamucil which seems to be helping. He is scheduled for a colonoscopy to further assess. F/B SANDRA ECHEVARRIA at [facility]. He is using his CPAP regularly and has an adjustable bed, but he notes that he is waking up every 2 hours to void since he had the ureter stent placement- and thus is a bit more tired than usual. He does note that he is still dreaming. He denies any interval parasomnias. 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 Pt denies cognitive difficulties. Rarely may forget a name of an actor. If he stands up and turns quickly, he will briefly feel off-balance. He has a h/o orthostatic lightheadedness r/t his carvedilol tx. Trying to make sure he is drinking enough water/fluids, as this helps. He notes that he has a tendency to stand up and move quickly. Has not had a good sense of smell for years. He has chronic sinus/allergic rhinitis s/s- f/b ENT Dr Santana. Lives with his . He has been trying to walk slowly on the treadmill- prior to the kidney stone issues. Denies tremor, stiffness, leg cramps. Previously stopped Melatonin- as even with 1mg dose, he woke up feeling unwell. 12/24/23 Initial HPI: Pt reports he started having sleep behaviors about 6 months ago. He would wake up yelling, moving, kicking, or pushing his away while using his CPAP. He has never left the bed in his sleep. His PCP started him on Melatonin 3-5mg qhs. The sleep behaviors stopped while on Melatonin, however he felt increased daytime grogginess, off-balance, cognitive cloudiness. He stopped Melatonin about 2 weeks ago, since his has noticed mumbling but no sleep behaviors. Pt is not interested in having a f/u in-lab PSG at this time as he does not sleep well during sleep studies and is currently undergoing prostate CA tx. Pt has used CPAP machine for approx 5 yrs for sleep apnea. Pt had recent f/u w/ Dr Sauceda, who told him his residual apneas were well-controlled. He had initial sleep study d/t snoring, but no longer snores when using CPAP. Per Dr Sauceda's note from November 2023- [employer]?air sense 11 auto?which is set at 6-16 cm H2O. Recent PAP compliance report showed: ? Days used: ,?days 4 hours plus: ,?average usage: 8.2 hours,?average pressure:?7.4 cm H2O, average leak: 7 L/min,?AHI: 0.0. Resp supplier is Elena. Pt endorsees vivid dreams, rare leg cramp, being off-balance when turning, lightheadedness if he stands too quickly- started when he started carvedilol, hyposmia- for along time. Pt denies hypnogenic hallucinations, voice changes, tremors, constipation, memory issues, falls. Walks regularly. 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 Takes alcohol socially- not r/t the parasomnias. 12/22/2023, [facility], MR Brain (C-/C+) COMPARISON: None. FINDINGS: IAC: There is no mass or abnormal enhancement in the internal auditory canals or cerebellopontine angles. Course and caliber of the 7th and 8th cranial nerves is normal bilaterally. Fluid signal is preserved in the inner ear structures bilaterally. Brainstem demonstrates normal signal. BRAIN and EXTRA-AXIAL SPACES: No significant abnormality of the visualized portions of the brain and extra-axial spaces. EXTRACRANIAL SOFT TISSUES: Visualized portions of the extracranial soft tissues are unremarkable. BONES: Visualized marrow signal is preserved. IMPRESSION: No retrocochlear abnormality to explain the patient?s symptoms. [facility] Medical History (Updated 01/03/24 @ 16:08 by RADHA Armendariz) Hyperbilirubinemia Surgical History H/O cardiac catheterization History of total left knee replacement History of hydrocelectomy H/O colonoscopy Family History Father Congestive heart failure Social History Alcohol intake: current Patient Tobacco Use Status: Never used Tobacco Physical Exam Vital Signs: Last Vital Signs Pulse 84 01/16/25 14:19 BP 120/82 01/16/25 14:19 Pulse Ox 95 01/16/25 14:19 Oxygen Delivery Method Room Air 01/16/25 14:19 BMI result Body Mass Index 30.2 Const General: no acute distress Resp Effort & Inspection: able to speak in complete sentences Neuro Other: A&O x's 3 Expression intact Soft voice. No tremor No BUE tone. FFM- very slightly decreas on right BUE STEW- poor fluidity on the right Foot taps- slightly decreased on right Stands easily without any support from hands, slight stoop, slight decreased jesse arm swing, steady gait. Psych Mental Status: mental status grossly normal Speech and movement: Clear speech present Attitude: cooperative Assessment & Plan Assessment & Plan (1) Parasomnia: Code(s): G47.50 - Parasomnia, unspecified Category: Medical (2) Obstructive sleep apnea: Code(s): G47.33 - Obstructive sleep apnea (adult) (pediatric) Category: Medical Plan Pt denies interval parasomnias. December 2023 brain MRI w/wo- no findings to account for pt's parasomnia s/s. Continue to monitor parasomnias despite optimal PAP tx, which do appear to be c/w REM sleep behaviors, as well as hyposmia, soft/hoarse voice, gait imbalance upon turning. Reviewed again that REM sleep behaviors can be seen up to 12 or 15 years prior to the development of a neurodegenerative disorder such as Parkinson's, DLB dementia, or dementia. There are no clear symptoms of a movement disorder or neurocognitive degenerative disorder at this time. Continue APAP 6-16 cm H2O nightly > 4 hrs as pt has good clinical effect from use- the use right now is interrupted by nocturia secondary to ureter stent placement. Will request updated PAP compliance data. Regarding gait orthostatic lightheadedness: Patient advised to intentionally stand slowly, turn with upper and lower body and alignment. Trial adding 1 bottle/serving of Gatorade/Powerade/liquid IV per day. Previous trials: Melatonin-not tolerated Future considerations: Trial of low dose clonazepam. Follow-up in 6 months or sooner prn. Coding Level of Care Code Est Pt Level 3 (62573) Diagnoses Parasomnia G47.50 Obstructive sleep apnea G47.33
[2025-01-16 14:19] VITALS: BP 120/82; PULSE 84; O2SAT 95; BMI 30.2
--- OUTSIDE RECORDS SUMMARY | 2025-01-16 16:52 | XMS_ITS | Continuity of Care Document ---
Author Organization [facility] Address [address] 2[address] [place] [address]- Care Team Providers Care Supervisor [employer] C[employer] Name Role Phone Killian CROWE, Juvenal Barahona Primary Care Physician [place] [facility] [place](s): 12/11/24 - 01/10/25 [facility] [place] [address] [place] [address]- Encounter Type: Triage Allergies, Adverse Reactions, Alerts Substance Criticality Severity Reaction Reaction Severity Status Bactrim 1 Active Relafen Active Bee Stings Active 1flushed and cramps. Immunizations Given and Recorded Vaccine Date Status Refusal Reason RSV vaccine preF3, recombinant 06/03/24 Recorded SARS-CoV-2(COVID-19)mRNA-LNP vac([id number]) 05/27/24 Recorded influenza virus vaccine, inactivated 05/22/24 Give n influenza virus vaccine, inactivated 05/24/23 Ahmet rded influenza virus vaccine, inactivated 04/26/22 Ahmet rded influenza virus vaccine, inactivated 05/02/21 Ahmet rded influenza virus vaccine, inactivated 06/07/19 Ahmet rded influenza virus vaccine, inactivated 04/19/18 Ahmet rded pneumococcal 20-valent conjugate vaccine 10/28/23 Given SARS-CoV-2(COVID-19)mRNA-LNP vac([id number]) 05/10/23 Recorded [id number] bivalent booster vax 12/11/22 Given [id number] bivalent booster vax 04/20/22 Recorded SARS-CoV-2 (COVID-19) mRNA-1273 vaccine 11/18/21 R ecorded SARS-CoV-2 (COVID-19) mRNA-1273 vaccine 06/02/21 R ecorded SARS-CoV-2 (COVID-19) mRNA-1273 vaccine 11/01/20 R ecorded SARS-CoV-2 (COVID-19) mRNA-1273 vaccine 10/04/20 R ecorded Influenza Virus Vaccine (oldterm) 05/03/20 Recorde d zoster vaccine, inactivated 02/08/19 Recorded zoster vaccine, inactivated 10/10/18 Recorded Hepatitis B Vaccine (old term) 09/02/18 Recorded Hepatitis B Vaccine (old term) 07/29/18 Recorded Hepatitis A Vaccine (oldterm) 09/02/18 Recorded Hepatitis A Vaccine (oldterm) 07/29/18 Recorded pneumococcal 23-valent vaccine 07/22/18 Recorded Zoster Vaccine Live 07/21/16 Recorded Medications amLODIPine 5 mg oral tablet 2 tablet, By Mouth, Daily, # 180 tablet, 0 Refills, Maintenance, 12/11/24 8:55:00 AM EDT, [facility], 170, cm, 11/21/24 10:27:00 EDT, Height, 84, kg, 11/18/24 14:23:00 EDT, Dry Weight Start Date: 12/11/24 Status: Ordered Quantity: 180.0 Unit: tablet Repeat number: 1 amoxicillin 500 mg oral capsule TAKE 4 CAPSULES BY MOUTH 1 hour prior TO dental appointment Start Date: 01/15/20 Status: Ordered Repeat number: 1 aspirin 81 mg oral tablet 1 tablet = 81 mg, By Mouth, Daily, 0 Refills, Maintenance, 09/11/19 11:01:00 AM EST Start Date: 09/11/19 Status: Ordered Repeat number: 1 carvedilol 3.125 mg oral tablet 1, tablet, By Mouth, 2 times a day, # 180 tablet, Refills 3, Tot. Refills 3, Maintenance, 11/21/24 11:11:00 AM EDT, Route to Pharmacy Electronically, [facility] - [place], [place], 170, cm, 11/21/24 10:27:00 EDT, Height, 84, kg, 11/18/24 14:23:00 EDT, Dry Weight Start Date: 11/21/24 Status: Ordered Quantity: 180.0 Unit: tablet Repeat number: 4 cephalexin monohydrate 500 mg oral capsule 1 capsule = 500 mg, By Mouth, Daily, Before biopsy's, # 1 capsule, 0 Refills, Maintenance, 12/11/22 10:08:00 AM EDT, Capsule, Partial fill upon patient request if the prescription is for a schedule II opioid drug. Start Date: 12/11/22 Status: Ordered Quantity: 1.0 Unit: capsule Repeat number: 1 cetirizine 10 mg oral tablet See Instructions, TAKE 1 TABLET BY MOUTH DAILY, # 90 tablet, 1 Refills, Maintenance, 11/12/24 11:53:00 AM EDT, [facility] [address] [place] [address], 165.3, cm, 10/25/24 14:10:00 EDT, Height, 84, kg, 05/15/24 9:11:00 EDT, Dry Weight Start Date: 11/12/24 Status: Ordered Quantity: 90.0 Unit: tablet Repeat number: 2 eplerenone 50 mg oral tablet 1 tablet = 50 mg, By Mouth, Daily, # 90 tablet, 3 Refills, Maintenance, 12/11/24 2:22:00 PM EDT, Tablet, [facility] [address] [place] [address], Partial fill upon patient request if the prescription is for a schedule II opioid drug., 170, cm, 11/21/24 10:27:00 EDT, Height, 84, kg, 11/18/24 14:23:00 EDT, Dry Weight Start Date: 12/11/24 Status: Ordered Quantity: 90.0 Unit: tablet Repeat number: 4 ezetimibe 10 mg oral tablet 1 tablet, By Mouth, Daily, # 90 tablet, 3 Refills, Maintenance, 11/21/24 11:11:00 AM EDT, [facility] [address] [place] [address], 170, cm, 11/21/24 10:27:00 EDT, Height, 84, kg, 11/18/24 14:23:00 EDT, Dry Weight Start Date: 11/21/24 Status: Ordered Quantity: 90.0 Unit: tablet Repeat number: 4 fluticasone 50 mcg/inh nasal spray 2 sprays, Nares, Both, 2 times a day, # 16 Gm, 0 Refills, Maintenance, 11/21/18 10:57:12 AM EDT, [place] Start Date: 11/21/18 Status: Ordered Quantity: 16.0 Unit: g Repeat number: 1 losartan 100 mg oral tablet 1 tablet, By Mouth, Daily, # 90 tablet, 3 Refills, Maintenance, 11/21/24 11:11:00 AM EDT, [facility] [address] [place] [address], [place], 170, cm, 11/21/24 10:27:00 EDT, Height, 84, kg, 11/18/24 14:23:00 EDT, Dry Weight Start Date: 11/21/24 Status: Ordered Quantity: 90.0 Unit: tablet Repeat number: 4 nitroglycerin 0.4 mg sublingual tablet See Instructions, PRN angina, 1 tablet Sublingual Every 5 minutes not to exceed 3 doses/15 min--if pain persists, seek medical attention, # 25 tablet, 3 Refills, Maintenance, 02/21/24 10:40:00 AM EDT,[facility] [address] [place] [address], [place], Partial fill upon patient request if the prescription is for a schedule II opioid drug., 165.3, cm, 02/14/24 13:50:00 EDT, Height, 84.09, kg, 11/25/23 7:36:00 EDT, Dry Weight Start Date: 02/21/24 Status: Ordered Quantity: 25.0 Unit: tablet Repeat number: 4 omeprazole 20 mg oral enteric coated capsule 1 capsule, By Mouth, 2 times a day, # 180 capsule, 1 Refills, Maintenance, 12/10/24 1:04:00 PM EDT, [facility] [address] [place] [address], [place], 170, cm, 11/21/24 10:27:00 EDT, Height, 84, kg, 11/18/24 14:23:00 EDT, Dry Weight Start Date: 12/10/24 Status: Ordered Quantity: 180.0 Unit: capsule Repeat number: 2 Replacement CPAP Replacement CPAP, See Instructions, # 1 each, Refills 0, Tot. Refills 0, Maintenance, DME: [facility]. Diagnosis: Obstructive sleep apnea, G47.33. Replacement CPAP: 6-16 cm H2O. Heated humidification. CPAP supplies. The patient's current device is old, has exceeded his useful life and needs to be replaced. Length of need: Lifetime, 99, 06/25/23 7:50:00 AM EST, Supply Start Date: 06/25/23 Status: Ordered Quantity: 1.0 Unit: each Repeat number: 1 rosuvastatin 40 mg oral tablet 1 tablet, By Mouth, Daily, # 90 tablet, 3 Refills, Maintenance, 07/24/24 12:49:00 PM EST, [facility] [facility], [place], 165.3, cm, 05/22/24 15:40:00 EDT, Height, 84, kg, 05/15/24 9:11:00 EDT, Dry Weight Start Date: 07/24/24 Status: Ordered Quantity: 90.0 Unit: tablet Repeat number: 4 tamsulosin 0.4 mg oral capsule 0.4 mg, 1, capsule, By Mouth, Daily, # 7 capsule, Refills 0, Tot. Refills 0, Maintenance, 11/18/24 5:23:00 PM EDT, Route to Pharmacy Electronically, [facility], [place], Partial fill upon patient request if the prescription is for a schedule II opioid drug., 170, cm, 11/18/24 14:23:00 EDT, Height, 84, kg, 11/18/24 14:23:00 EDT, Dry Weight Start Date: 11/18/24 Stop Date: 11/25/24 Status: Ordered Quantity: 7.0 Unit: capsule Repeat number: 1 Vitamin D3 2000 intl units oral capsule 1 capsule = 50 mcg, By Mouth, Daily, 0 Refills, Maintenance, 03/08/23 2:39:00 PM EDT, Partial fill upon patient request if the prescription is for a schedule II opioid drug. Start Date: 03/08/23 Status: Ordered Repeat number: 1 Problem List Condition Confirmation Course Effective Dates Status Health Status Informant Abscess Confirmed Active Coronary arteriosclerosis Confirmed Active CAD in [place] artery Confirmed Active Adrenal abnormality Confirmed Active Dyspnea Confirmed Active ED (erectile dysfunction) Confirmed Active Fall at home Confirmed Active Chronic GERD Confirmed Active Hyperbilirubinemia Confirmed Active HLD (hyperlipidemia) Confirmed Active HTN (hypertension) Confirmed Active Dyspepsia Confirmed Active Lower abdominal pain Confirmed Active Lower urinary tract symptoms (LUTS) Confirmed Active JAROCHO - Obstructive sleep apnea Confirmed Active Osteopenia Confirmed Active Small intestinal bacterial overgrowth (SIBO) Confirmed Active Subcutaneous mass of neck Confirmed Active Supraclavicular adenopathy Confirmed Active Tubular adenoma of colon Confirmed Active Floaters in visual field Confirmed Active Social History Social History Type Response Smoking Status Never (less than 100 in lifetime) entered on: 9/26/19 Sex Sex Representation Male (finding) Patient Care team information Care Team Personnel Name: Michelle Cochran RN Position: [facility] RN Member Role: Primary Care Nurse Name: Mona Wright RN Position: [facility] RN Member Role: Primary Care Nurse Name: Consuelo Rendon MA Position: [facility] KELLY Office Staff Member Role: Lifetime Consulting Physician Name: Sherry Wilcox RN Position: [facility] SN RN Member Role: Primary Care Nurse Name: Juvenal Daily MD Position: [facility] Outreach Member Role: PCP Address: [address] [id number] Telecom: Name: Kolby Novak RN Position: [facility] RN Member Role: Primary Care Nurse Name: Jeffery Bragg RN Position: [facility] RN Member Role: Primary Care Nurse Care Team Related Persons Name: RY ARGUELLO Insurance Providers Guarantor name: JAZMINE ARGUELLO Health Plan Information #: 1 Payer: MEDICARE B Payer Identifier: SNEHA Member Number: [id number] Group Number: Subscriber Identifier: [id number] Relationship to Subscriber: self Coverage Type: NA Coverage Verification Date: NA Telecom: NA Address: Health Plan Information #: 2 Payer: [employer] SECONDARY ONLY Payer Identifier: SNEHA Member Number: [id number] Group Number: Subscriber Identifier: [id number] Relationship to Subscriber: self Coverage Type: MEDICARE Coverage Verification Date: Telecom: NA Address:
== END 2025-01-16 15:18 | disposition home or self-care (01) ==
LOC: HO.HSMS 14:04
PROVIDERS: PCP Internal Medicine; Visit Provider Nurse Practitioner Family
DX: G47.50 Parasomnia, unspecified (principal); G47.33 Obstructive sleep apnea (adult) (pediatric)
CPT/HCPCS: 99213

== ENCOUNTER → 2025-01-16 14:04 | Outpatient (BNVA) | payer MEDICARE, SELFPAY | PROVIDERS: PCP Internal Medicine; Visit Provider Nurse Practitioner Family | DX: G47.50 Parasomnia, unspecified (principal); G47.33 Obstructive sleep apnea (adult) (pediatric); Z99.89 Dependence on other enabling machines and devices | CPT/HCPCS: 99212 ==

== ENCOUNTER 2025-07-19 13:54 | Outpatient (AMB) | payer MEDICARE, SELFPAY ==
--- OUTSIDE RECORDS SUMMARY | 2014-11-27 04:00 | XMS_ITS | Continuity of Care Document ---
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 Splicer Name Role Phone Enrrique Hernandez MD Unavailable Unavailable Allergies, Adverse Reactions, Alerts Substance Reaction Status Criticality adhesive Active No Information Medications Medication Instructions Dosage Effective Dates (start - stop) Status Comments EMLA 2.5 %-2.5 % topical cream apply to access site 30 min- one hour prior to needle stick - Active FLUOXETINE HCL (unknown strength) take 1 tablet by oral route every day in the morning Not Available - Active [place] 5 mg-325 mg tablet take 1 tablet by oral route every 6 hours as needed for pain - Active AMLODIPINE BESYLATE (unknown strength) take 1 tablet by oral route 2 times every day Not Available - Active CARVEDILOL (unknown strength) take 1 tablet by oral route 2 times every day with food Not Available - Active CLONIDINE (unknown strength) apply 1 patch by transdermal route every week Not Available - Active FUROSEMIDE (unknown strength) inject 2 milliliter by intravenous route every day slowly Not Available - Active PRILOSEC (unknown strength) take 2 capsule by oral route every day before a meal Not Available - Active Procedures Procedure Date FLUORO GUIDE CENTRAL VENOUS ACCESS DEVIC E REMOVE TUNNELED CVC To Be Coded ARTERIOVENOUS SHUNT W/ IMAGING 15 To Be Coded OFFICE/OUTPATIENT VISIT, EST To Be Coded ARTERIOVENOUS SHUNT W/ IMAGING 15 ANGIOPLASTY PERC VENOUS Transcath Intravasc Stent Placement - In itial Vein Vasc Embo-w/Imaging,venous ANGIOGRAPHY MACHINE SPRING FORMER TRANSCATH INTRO IV STENT TRANSCATH THERAPY EMBOLIZATION 15 To Be Coded ARTERIOVENOUS SHUNT W/ IMAGING 14 Vasc Embo-w/Imaging,venous VENOGRAPHY EXT UNILAT TRANSCATH THERAPY EMBOLIZATION 14 CONSCIOUS SEDATION SELECT CATH PLCMNT VENOUS 1ST 4 To Be Coded ARTERIOVENOUS SHUNT W/ IMAGING 14 ARTERIOVENOUS SHUNT 2ND ACCESS W/IMAGING SELECT CATH PLCMNT ART INIT 2ND 014 ANGIOPLASTY PERC VENOUS Vasc Embo-w/Imaging,venous ANGIO EXTREMITY UNILAT ANGIOGRAPHY MACHINE SPRING FORMER TRANSCATH THERAPY EMBOLIZATION 14 To Be Coded FOLLOW UP VISIT NO CHARGE To Be Coded DOPPLER FLOW TESTING To Be Coded 2 Office visit, new patient - comprehensiv e moderate MDM To Be Coded FLUORO GUIDE CENTRAL VENOUS ACCESS DEVIC E INSERT TUNNELED CV CATH >5YRS 4 REMOVE TUNNELED CVC US GUIDANCE VASCULAR ACCESS To Be Coded Advance Directives Directive Yes / No Effective Date File Name No Information Encounters Encounter Description Practice Location Reason(s) For Visit Diagnoses Date Provider Providers Copied on Encounter [facility] [employer], [address] [place] [address], [id number], [place] tel:[phone] [facility] End stage renal diseaseTo Be Coded 5 Mary Osuna. [address] [place] [address], [id number], [place]. tel:[phone] Referring Provider: Gaudencio Barahona, [address] [place] [address], [address] . tel:[phone] [facility], [address] [place] [address], [id number], [place] tel:[phone] [facility] No Information 5 Bob Sanford. [address] [place] [address], [id number]. tel:[phone] Referring Provider: Gaudencio Barahona, [address] [address], [place], [address] . tel:[phone] OFFICE/OUTPATI ENT VISIT, EST [facility], [address] [place] [address], [id number], [place] tel:[phone] [facility] evaluation for AV-fistula creation (chief complaint) No Information 5 Jose D Villalba. [address] [place] [address], [facility], [place], [place], [id number], [place]. tel:[phone] Referring Provider: Gaudencio Barahona, [address] [address], [place], [address] . tel:[phone] [facility], [address] [place] [address], [id number], [place] tel:[phone] [facility] No Information 5 Melinda Villalba. [address] [place] [address], [id number], [place]. tel:[phone] Referring Provider: Gaudencio Barahona, [address] [address], [place], [address] . tel:[phone] [facility], [address] [place] [address], [id number], [place] tel:[phone] [facility] No Information 201 4 Melinda Villalba. [address] [place] [address], [id number], [place]. tel:[phone] Referring Provider: Gaudencio Barahona, [address] [address], [place], [address] . tel:[phone] [facility], [address] [place] [address], [id number], tel:[phone] [facility], [facility] No Information 4 Mary Osuna. [address] [place] [address], [id number], [place]. tel:[phone] Referring Provider: Gaudencio Barahona, [address], [address] . tel:[phone] [facility], [address] [place] [address], [id number], tel:[phone] [facility] No Information 4 Jose D Villalba. [address] [place] [address], [address], [id number], [place]. tel:[phone] Referring Provider: Gaudencio Barahona, [address] [address], [place], [address] . tel:[phone] [facility], [address] [place] [address], [id number], tel:[phone] [facility] No Information 4 Jose D Villalba. [address] [place] [address], [address], [id number], [place]. tel:[phone] Referring Provider: Gaudencio Barahona, [address] [address], [place], [address] . tel:[phone] Office visit, new patient - comprehensive [facility], [facility], [address] [place] [address], [id number], [place] tel:[phone] [facility], [facility] End Stage Renal Disease (chief complaint) No Information 4 Jose D Villalba. [address] [place] [address], [address], [id number], [place]. tel:[phone] Referring Provider: Gaudencio Barahona, [address] [facility] [address], [place], [address] . tel:[phone] [facility], [address] [place] [address], [place], [id number], [place] tel:[phone] [facility] No Information 4 Tavia Edmond. [address] [place] [address], [id number], [place]. tel:[phone] Referring Provider: Gaudencio Barahona, [address] [facility] [address], [place], [address] . tel:[phone] Family History Family Member Type Diagnosis Age At Onset No Information Immunizations Vaccine Date Status Comments pneumo (2 yrs or older) (PPV23) administered Note: Previously Giv en ; Source: New Immunization Record pneumo (2 yrs or older) (PPV23) administered Note: Previously Giv en ; Source: New Immunization Record Payers Payer name Insurance type Covered alliance party ID Authoriza tion(s) No Information Social History Type Description Quantity Date Captured Comments Alcohol Use Details No Caffeine Use Details Unknown Tobacco Use Status Smoking Status Current every day smoker Non-Smoking Tobacco Use Details : No Details Available : No Details Available Sex Male Vital Signs Date / Time: Height Weight BMI Pulse Rate Blood Pressure Temperature Respiratory Rate Body Surface Area Head Circumference Head Circ. Percentile Wt./Bradley. Percentile BMI percentile Pulse Ox Inhaled Ox 9:40 AM 73.000 kg (160.00 lbs) 25.0 6 kg/m eter (2) 132/72 mm[Hg] 9:41 AM 73.000 kg (160.00 lbs) 126/70 mm[Hg] 10:15 AM 73.000 kg (160.00 lbs) 132/72 mm[Hg] Chief Complaint And Reason For Visit No Information Reason For Referral Reason For Referral No Information History Of Present Illness Encounter Date Complaint History Of Prese nt Illness No Information Functional Status Date Functional Assessmen t No Information Instructions Date Instruction Additional Infor mation No Information Assessments Type Assessment Date No Information Patient Care Teams Name Effective Dates (start - stop) Status Members No Information
[2025-07-19 13:59] VITALS: BP 112/70; PULSE 71; O2SAT 97; BMI 30.2
--- NOTE | 2025-07-19 13:59 | A.OFFVIS_ITS ---
Vital Signs 07/19/25 13:59 Height 5 ft 7 in Weight 193 lb BMI 30.2 BP 112/70 Blood Pressure Location Rt brachial Position Sitting Pulse 71 Pulse Source Pulse Oximeter Pulse Oximetry (%) 97 Oxygen Delivery Method Room Air Intake Visit Reasons: 6 Month F/U Intake Note: Patient presents 6 month follow up for JAROCHO. 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 He has been started on isosorbide and clopidogrel 75mg x's at least 6-12 months- but possibly longer. He had a recent left kidney stone- lithotripsy was planned but held due to need for the cardiac cath. He is also due for a colonoscopy d/t episodes of rectal bleeding s/p Rad Tx- possible radiation proctitis. He states the prostate cancer is currently remission. He states he is sleeping well- still prone to waking up 3-4 x's per night to void. Does try to pace his fluid intake to avoid taking fluid too late. But he does keep a water bottle by his bed, per his urologist suggestion. He does take a chamille tea before bed. He stopped the melatonin, as this always made him feel unwell. He denies any memory issues. He continues to work without difficulties. He is walking on a treadmill daily. No recent sleep behaviors. Occasional leg restlessness. 01/16/2025, HPI: Pt reports he has continued his Prostate CA tx- s/p radiation tx and had his last scheduled hormonal tx- however going forward the hormonal tx will be given based on future PSA levels. . Pt is now undergoing tx for bilateral nephrolithesis, underwent a right stone extraction/temporary stent placement, and then after the stent was removed, he had UTI, and ultimately had another temporary stent placement. He states they are hoping to be able to tx the left kidney stone w/ lithrotripsy. He notes that he has some ureter adhesions/stricture d/t the h/o radiation tx. Pt also has been having rectal bleeding- this is suspected to be d/t rectal pro ctitis also d/t the Rx tx. Can have some constipation but also some loose stools. GI started him on metamucil which seems to be helping. He is scheduled for a colonoscopy to further assess. F/B SANDRA ECHEVARRIA at [facility]. He is using his CPAP regularly and has an adjustable bed, but he notes that he is waking up every 2 hours to void since he had the ureter stent placement- and thus is a bit more tired than usual. He does note that he is still dreaming. He denies any interval parasomnias. 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 Pt denies cognitive difficulties. Rarely may forget a name of an actor. If he stands up and turns quickly, he will briefly feel off-balance. He has a h/o orthostatic lightheadedness r/t his carvedilol tx. Trying to make sure he is drinking enough water/fluids, as this helps. He notes that he has a tendency to stand up and move quickly. Has not had a good sense of smell for years. He has chronic sinus/allergic rhinitis s/s- f/b ENT Dr Santana. Lives with his . He has been trying to walk slowly on the treadmill- prior to the kidney stone issues. Denies tremor, stiffness, leg cramps. Previously stopped Melatonin- as even with 1mg dose, he woke up feeling unwell. 12/24/23 Initial HPI: Pt reports he started having sleep behaviors about 6 months ago. He would wake up yelling, moving, kicking, or pushing his away while using his CPAP. He has never left the bed in his sleep. His PCP started him on Melatonin 3-5mg qhs. The sleep behaviors stopped while on Melatonin, however he felt increased daytime grogginess, off-balance, cognitive cloudiness. He stopped Melatonin about 2 weeks ago, since his has noticed mumbling but no sleep behaviors. Pt is not interested in having a f/u in-lab PSG at this time as he does not sleep well during sleep studies and is currently undergoing prostate CA tx. Pt has used CPAP machine for approx 5 yrs for sleep apnea. Pt had recent f/u w/ Dr Sauceda, who told him his residual apneas were well-controlled. He had initial sleep study d/t snoring, but no longer snores when using CPAP. Per Dr Sauceda's note from November 2023- [employer]?air sense 11 auto?which is set at 6- 16 cm H2O. Recent PAP compliance report showed: ? Days used: ,?days 4 hours plus: ,?average usage: 8.2 hours,?average pressure:?7.4 cm H2O, average leak: 7 L/min,?AHI: 0.0. Resp supplier is [employer]. Pt endorsees vivid dreams, rare leg cramp, being off-balance when turning, lightheadedness if he stands too quickly- started when he started carvedilol, hyposmia- for along time. Pt denies hypnogenic hallucinations, voice changes, tremors, constipation, memory issues, falls. Walks regularly. 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 Takes alcohol socially- not r/t the parasomnias. 12/22/2023, [facility], MR Brain (C-/C+) COMPARISON: None. FINDINGS: IAC: There is no mass or abnormal enhancement in the internal auditory canals or cerebellopontine angles. Course and caliber of the 7th and 8th cranial nerves is normal bilaterally. Fluid signal is preserved in the inner ear structures bilaterally. Brainstem demonstrates normal signal. BRAIN and EXTRA- AXIAL SPACES: No significant abnormality of the visualized portions of the brain and extra-axial spaces. EXTRACRANIAL SOFT TISSUES: Visualized portions of the extracranial soft tissues are unremarkable. BONES: Visualized marrow signal is preserved. IMPRESSION: No retrocochlear abnormality to explain the patient?s symptoms. [facility] Medical History (Updated 07/19/25 @ 15:08 by RADHA Armendariz) Hyperbilirubinemia Surgical History H/O cardiac catheterization History of total left knee replacement History of hydrocelectomy H/O colonoscopy Family History Father Congestive heart failure Social History Alcohol intake: current Patient Tobacco Use Status: Never used Tobacco Physical Exam Vital Signs: Last Vital Signs Pulse 71 07/19/25 13:59 BP 112/70 07/19/25 13:59 Pulse Ox 97 07/19/25 13:59 Oxygen Delivery Method Room Air 07/19/25 13:59 BMI result Body Mass Index 30.2 Const General: no acute distress Resp Effort & Inspection: able to speak in complete sentences Neuro Other: A&O x's 3 Expression intact Soft voice. No tremor Stands easily without any support from hands, slight stoop, slight decreased jesse arm swing, steady gait. Psych Mental Status: mental status grossly normal Speech and movement: Clear speech present Attitude: cooperative Assessment & Plan Assessment & Plan (1) Parasomnia: Code(s): G47.50 - Parasomnia, unspecified Category: Medical Qualifiers: Parasomnia type: unspecified parasomnia Qualified Code(s): G47.50 - Parasomnia, unspecified (2) Obstructive sleep apnea: Code(s): G47.33 - Obstructive sleep apnea (adult) (pediatric) Category: Medical Plan Pt denies interval parasomnias. December 2023 brain MRI w/wo- no findings to account for pt's parasomnia s/s. Continue to monitor parasomnias despite optimal PAP tx, which do appear to be c/w REM sleep behaviors, as well as hyposmia, soft/hoarse voice, gait imbalance upon turning. Discussed REM sleep behaviors can be seen up to 12 or 15 years prior to the development of a neurodegenerative disorder such as Parkinson's, DLB dementia, or dementia. There are no clear symptoms of a movement disorder or neurocognitive degenerative disorder at this time. Continue to engage in regular physical, social, and cognitive least stimulating activities. Continue to optimize CV risk factors, and follow-up with cardiology as scheduled. Continue APAP 6-16 cm H2O nightly > 4 hrs as pt has good clinical effect from use- the use right now is interrupted by nocturia secondary to ureter stent placement. We did request PAP compliance data- however SD card not transmitting data Previous trials: Melatonin-not tolerated Future considerations: Trial of low dose clonazepam. Follow-up in 6 months or sooner prn. Coding Level of Care Code Est Pt Level 3 (29365) Diagnoses Parasomnia, unspecified type G47.50 Parasomnia type: unspecified parasomnia Obstructive sleep apnea G47.33
--- OUTSIDE RECORDS SUMMARY | 2025-07-19 21:08 | XMS_ITS | Encounter Summary ---
Author Organization [facility] Address [address] [place] [address] Care Team Providers Care Aerial Lineman Name Role Phone Luis Gregory MD Primary Care Provider Encounter Details Date Type Department Care Team (Latest Contact Info) Description 12/08/2024 Lab Requisition [facility] - Main Lab [address] [place] [address] Alfredo Butler MD [address] [facility] [address] [place], [place] [id number] Hydronephrosis with ureteral stricture, not elsewhere classified Social History Tobacco Use Types Packs/Day Years Used Date Smoking Tobacco: Never Assessed Sex and Gender Information Value Date Recorded Sex Assigned at Not on file Legal Sex Male 6:28 PM EDT Gender Identity Not on file Sexual Orientation Not on file documented as of this encounter Plan of Treatment Not on file documented as of this encounter Procedures Procedure Name Priority Date/Time Associated Diagnosis Comments CULTURE URINE Routine 12/08/2024 12:00 AM EDT Hydronephrosis with ureteral stricture, not elsewhere classified documented in this encounter Results * Culture urine (12/08/2024 12:00 AM EDT) Culture, Urine No growth 12/09/2024 2:38 PM EDT [facility] Urine Urine specimen obtained by clean catch procedure / Unknown 12/08/2024 12/08/2024 6:13 PM EDT us Alfredo Butler MD LAB MICROBIOLOGY - GENERAL ORDER TOAN Final Result [facility] [address] [place] [address], documented in this encounter Visit Diagnoses Diagnosis Hydronephrosis with ureteral stricture, not elsewhere classified documented in this encounter Care Teams Aerial Lineman Relationship Specialty Start Date End Date Luis Gregory MD [address] [place] [id number] PCP - General Internal Medicine 12/08/24 documented as of this encounter
--- OUTSIDE RECORDS SUMMARY | 2025-07-19 21:08 | XMS_ITS | Clinical Summary ---
Author Organization [address] [facility] Address [address] [place] [address] Phone Care Team Providers Care Floor Worker [place] Name Role Phone Luis Gregory MD Primary Care Provider Social History Tobacco Use Types Packs/Day Years Used Date Smoking Tobacco: Never Assessed Sex and Gender Information Value Date Recorded Sex Assigned at Not on file Legal Sex Male 6:28 PM EDT Gender Identity Not on file Sexual Orientation Not on file Plan of Treatment Health Maintenance Due Date Last Done Comments DTaP,Tdap,and Td Vaccines (1 - Tdap) 1969 Hepatitis B Vaccines (3 of 3 - 19+ 3-dose series) 01/27/2019 09/02/2018, 07/29/2018 RSV Immunization Adult Patients (1 - 1-dose 75+ series) 2024 Depression Screening 08/09/2024 Cholesterol Screening (Lipid Panel) 11/03/2024 Falls Risk Assessment 11/03/2024 Hepatitis C Screening 11/03/2024 Medicare Annual Wellness Visit 11/03/2024 Social Influencers of Health Screening 11/03/2024 Hypertension/CHF/CAD Annual BMP Blood Test 11/07/2024 COVID-19 Vaccine ( season) 2025 05/10/2023, 11/18/2021, 06/02/2021, Additional history exists Influenza Vaccine (#1) 2025 , 05/24/2023, 04/26/2022, Additional history exists Hepatitis A Vaccines Aged Out 09/02/2018, 07/29/20 18 No longer eligible based on patient's age to complete this topic Zoster Vaccines Completed 02/08/2019, 11/2018, 07/21/2016 Pneumococcal Vaccine: 50+ Years Completed 10/28/2023, 07/22/2018 HIB Vaccines Aged Out No longer eligi ble based on patient's age to complete this topic HPV Vaccines Aged Out No longer eligi ble based on patient's age to complete this topic IPV Vaccines Aged Out No longer eligi ble based on patient's age to complete this topic MMR Vaccines Aged Out No longer eligi ble based on patient's age to complete this topic Meningococcal ACWY Vaccine Aged Out N o longer eligible based on patient's age to complete this topic Meningococcal B Vaccine Aged Out No l onger eligible based on patient's age to complete this topic RSV Immunization Patients Under 20 months Aged Out No longer eligible based on patient's age to complete this topic Varicella Vaccines Aged Out No longer eligible based on patient's age to complete this topic Insurance [facility]ICARE [facility] Care Teams Floor Worker [place] Relationship Specialty Start Date End Date Luis Gregory MD [address] [place] [phone] PCP - General Internal Medicine 12/08/24
--- OUTSIDE RECORDS SUMMARY | 2025-07-19 21:08 | XMS_ITS | Data Portability ---
Author Organization [place] - [facility], Allergy Address [address] [address] Care Team Providers Care Sand Polisher Name Role Phone MARÍA ELENA STEWARD Primary Care Provider [phone] Assessment Encounter Date Assessment Date Assessment LastModified by Organization Details LastModified Time 04/26/2024 04/26/2024 Patient's hearin g remains essentially stable and reprogramming is not recommended at this time given the patient's satisfaction with sound quality. The devices were previously programmed using the AudioChat[employer]it hearing aid analyzer and real-ear verification was not repeated today. Hearing devices were noted to be generally free of debris. Using a listening scope, the school superintendent & microphone were found to be in [...] order raquel ARROYO. Follow up for fitting. [email or web address] Not available 04/26/2024 16:07:07 05/17/2024 05/17/2024 The devices were programmed wirelessly using the auto dealer's software in [facility]. We reviewed using real-ear verification and adjusting [...] end of the visit, the patient practiced insertion/removal and reported no pain or discomfort. Follow up in two to four weeks to discuss progress and address any concerns. The patient was also encouraged to utilize our drop-off servicing system in the unfortunate event that something happens to their device and/or to contact me through phone or email at their convenience. [email or web address] Not available 05/17/2024 08:49:24 06/07/2024 06/07/2024 The hearing devices are in working order and generally free of debris. Daily maintenance was reviewed. The patient was encouraged to wipe debris off of the device and to avoid humidity whenever possible. Replacement of the wax filter was reviewed and the patient was encouraged to replace the filter if they suspect that something is wrong with the device or prophylactically on a monthly basis, whatever their preference may be. Follow up annually for cleaning and servicing of the devices, as well as monitoring patient's hearing. The patient was also encouraged to utilize our drop-off servicing system in the unfortunate event that something happens to their device and/or to contact me through phone or email at their convenience. [email or web address] Not available 06/07/2024 13:54:01 08/03/2024 08/03/2024 Adjusted iPhone settings to Phonak recommendations. Patient was answering phone with the iphone which put the output to the earpiece of the iphone; he was able to hear correctly when answering the ring by selecting his hearing aid instead which puts the output to the left hearing aid. Reviewed how to adjust volume of the phone call. Patient was satisfied with use in the office. Hearing devices were found to be generally free of debris. Follow up as needed. [email or web address] Not available 08/03/2024 10:52:53 Plan of Treatment Reminders Order Date Submit Date Provider Last Modified By Organization Details Last Modified Time Details Appointments MANRIQUEZ Fitting Follow Up (60) 2025 04:00P M Tameka BROWNE Not available Not available Not available Lab None recorded . Referral None recorded . Procedures None recorded . Surgeries None recorded . Imaging None recorded . Medication Orders None recorded . Patient TargetsNo targets recorded. Patient Instructions Encounter Date Encounter Id Patient Instructions Last Modified By Organization Details Last Modified Time 12/27/2024 [id number] Patient with history of asymmetric hearing loss with negative MRI in December 2023. There was no significant sinus disease on the scan. He has had longstanding history of mouth and allergy symptoms. Symptoms have been controlled with cetirizine, fluticasone and simply saline. He has been on the cetirizine for many years and would like to try something else. Have suggested OTC loratadine. He will message me through the portal to discuss his progress. Otherwise I will see him in 12 to 18 months. He will come back in the fall to see Cliff for audiometric testing and hearing aid adjustments [email or web address] Not available 12/27/2024 09:44:15 Reason for Referral None Reported. Results Created Date Observation Date Name Description Value Unit Range Abnormal Flag Note LastModifiedBy Organization Detail LastModifiedTime 03/29/20 24 05/02/2019 imagi ng/di agnos tic resul t No observ ation record ed. [email or web address] Not Available 05:41:51 03/29/20 24 05/22/2020 imagi ng/di agnos tic resul t No observ ation record ed. [email or web address] Not Available 05:42:09 03/29/2005/26/2023 imagi ng/di agnos tic resul t No observ ation record ed. [email or web address] Not Available 05:42:10 03/29/20 24 05/28/2021 imagi ng/di agnos tic resul t No observ ation record ed. [email or web address] Not Available 05:42:13 03/29/20 24 06/03/2022 imagi ng/di agnos tic resul t No [...] ation record ed. [email or web address] Not Available 05:42:26 03/29/2005/22/2020 audio gram No observ ation record ed. [email or web address] Not Available 05:42:37 03/29/2005/26/2023 audio gram No observ ation record ed. [email or web address] Not Available 05:42:38 03/29/2005/28/2021 audio gram No observ ation record ed. [email or web address] Not Available 05:42:39 03/29/2006/03/2022 audio gram No observ ation record ed. [email or web address] Not Available 05:42:40 04/27/20 audio gram No observ ation record ed. [email or web address] Not Available 2023 15:14:54 Result Notes None recorded. Problems Name Problem SNOMED Code Status Onset Date Resolution Date Notes Provider Name and Address Organization Details Recorded Time Unilatera l sensorine ural hearing loss with unrestric mbael hearing on the contralat eral side Active 2014 Sensorine ural HL, unilatera l; Note: Date Diagnosed : 12/28/2014 2:16 PM (389.15) Not Available [facility] 4 02:22:05 Sensorine ural hearing loss of bilateral ears 550104074 Active 2014 Sensorine ural hearing loss, bilateral ; Note: Date Diagnosed : 5 8:45 AM (H90.3) Not Available [facility] 4 02:21:38 Cough 27392524 Active 2015 Cough; Note: Date Diagnosed : 6 8:30 AM (R05) Not Available [facility] 4 02:22:08 Posterior rhinorrhe a 74926818 Active 2015 Postnasal drip; Note: Date Diagnosed : 6 8:30 AM (R09.82) Not Available [facility] 4 02:22:02 Deviated nasal septum 528635440 Active 2015 Deviated nasal septum; Note: Date Diagnosed : 6 8:30 AM (J34.2) KIMBERLY OH MD [address] [place] [address],[place] [address], [place], [place], [address] , [facility] - [facility] 5 09:42:26 Chronic rhinitis 54663078 Active 2015 Chronic rhinitis; Note: Date Diagnosed : 6 9:04 AM (J31.0) KIMBERLY OH MD [address] [place] [address],[place] [address], [place], [place], [address] , [facility] 5 09:42:17 Disorder of right Eustachia n tube 35304074432 21642 Active 2016 Other specified disorders of Eustachia n tube, right ear; Note: Date Diagnosed : 09/28/2016 10:11 AM (H69.81) Not Available [facility] 4 02:21:49 Mixed conductiv e and sensorine ural hearing loss of right ear 98235118125 105 Active 2016 Mixed conductiv e and sensorine ural hearing loss, unilatera l, right ear with restricte d hearing on the contralat eral side; Note: Date Diagnosed : 09/28/2016 10:11 AM (H90.A31) Not Available [facility] 4 02:22:15 Essential hypertens ion 45728170 Active 2023 Essential (primary) hypertens ion; Note: Date Diagnosed : 11/22/2023 1:35 PM (I10) Not Available [facility] 4 02:22:04 Dizziness and giddiness 149546097 Active 2023 Light-hea dedness; Note: Date Diagnosed : 11/22/2023 1:34 PM (R42) Not Available [facility] 4 02:22:09 Sensorine ural hearing loss of bilateral ears 889716649 Active 2024 KIMBERLY OH MD [address] [facility] [place] [address], [place], [address] , [facility] 5 09:42:18 Problem Notes None recorded. Procedures Surgical History Date Name Laterality Status Provider Name and Address Organization Details Recorded Time 4 Air only Audio - 34259 completed VIK SHELTON, [facility] [address] [facility] [place] [address], [place], [address], [facility] 04/26/2024 16:07:10 4 SRT & Speech Recognition - 23148 completed VIK SHELTON [facility] [address] [facility] [place] [address], [place], [address], [facility] 04/26/2024 16:07:16 Imaging Results None recorded. Procedure Notes None recorded. Medical Equipment None Reported. Allergies Allergen ID Allergen Name Allergen Category Reaction Reaction Severity Criticality Documentation Date Start Date Code Code System Note Provider Name and Address Organization Details Recorded Time 67405 melatonin medicatio n other Not available Not available 12/21/2023 6711 RxNorm React ion: other react ion, Unkno wn; Not Available [facility] 4 00:52:31 62451 Bactrim medicatio n other Not available Not available 12/21/2023 99618 9 RxNorm React ion: other react ion, Unkno wn; Not Available [facility] 4 00:52:40 Medications Name Sig Start Date Stop Date Status Note LastModified by Organization Details LastModified Time carvedilo l 6.25 mg tablet 3.125 mg twice a day by oral route. 12/26 completed Not Available Not Available Not Available cetirizin e 10 mg tablet TAKE 1 TABLET BY MOUTH DAILY active Not Available Not Available No t Available cefpodoxi me 200 mg tablet TAKE 1 TABLET BY MOUTH EVERY 12 HOURS FOR 10 DAYS 12/26 completed Not Available Not Available Not Available Elton Low Dose Aspirin 81 mg tablet,de layed release active Medicati on ID: [id number] B rand Name: Aspirin Low Dose Sen d Method: E-Prescr ibed Sub s Allowed: subs OK Medic ationGen ericName : Aspirin Low Dose Not Available Not Available Not Available amlodipin e 2.5 mg tablet TAKE 1 TABLET BY MOUTH DAILY 12/26 completed Not Available Not Available Not Available melatonin 3 mg tablet TAKE 1 tablet by MOUTH AT bedtime MAY INCREASE by 3 MG steps UNTIL REM SLEEP disorder resolved TO A max DOSE OF 15 MG] 12/26 completed Not Available Not Available Not Available chlorthal idone 25 mg tablet 12/26 completed Not Available Not Available Not Available amlodipin e 5 mg tablet 5 mg every day by oral route. 2024 active Not Available Not Available Not Avai lable ciproflox acin 500 mg tablet 12/26 completed Not Available Not Available Not Available omeprazol e 40 mg capsule,d elayed release 20 mg twice a day by oral route. 2024 active Not Available Not Available Not Avai lable carvedilo l 3.125 mg tablet TAKE 1 TABLET BY MOUTH TWICE DAILY active Not Available Not Available No t Available potassium chloride ER 20 mEq tablet,ex tended release(p art/cryst ) 12/26 completed Not Available Not Available Not Available tamsulosi n 0.4 mg capsule TAKE 1 CAPSULE BY MOUTH DAILY FOR 7 DAYS 12/26 completed Not Available Not Available Not Available cephalexi n 500 mg capsule TAKE 1 CAPSULE BY MOUTH 4 TIMES DAILY FOR 7 DAYS 12/27 completed Not Available Not Available Not Available nitroglyc suni 0.4 mg sublingua l tablet TAKE 1 tablet under the tongue Every 5 minutes as needed for chest pain; not to exceed 3 doses/15 min--if pain persists , seek medical attentio n active Not Available Not Available No t Available sertralin e 25 mg tablet TAKE 1 TABLET BY MOUTH DAILY 12/26 completed Not Available Not Available Not Available omeprazol e 20 mg capsule,d elayed release TAKE 1 CAPSULE BY MOUTH TWICE DAILY active Not Available Not Available No t Available mupirocin 2 % topical ointment APPLY 1 applicat ion Topicall y 3 times a day,x10 days 12/26 completed Not Available Not Available Not Available clobetaso l 0.05 % topical ointment Apply to rash on back TWICE DAILY NEEDED active Not Available Not Available No t Available lisinopri l 40 mg tablet 05/22 completed Medicati on ID: [id number] D uration Value: 90 Brand Name: lisinopr [...] one mg/dose until sleep disturba nce resolved 12/26 completed Not Available Not Available Not Available hydrochlo rothiazid e Take 1 tablet by mouth once a day 05/22 completed Medicati on ID: [id number] D uration Value: 30 Brand Name: hydrochl orothiaz dior Send Method: E-Prescr ibed Sub s Allowed: subs OK Medic ationGen ericName : hydrochl orothiaz dior Not Available Not Available Not Available salsalate 05/22 completed Medicati on ID: [id number] B rand Name: salsalat e Send Method: E-Prescr ibed Sub s Allowed: subs OK Medic ationGen ericName : salsalat e Not Available Not Available Not Available Centrum Silver 05/22 completed Medicati on ID: [id number] B rand Name: centrum silver S end Method: E-Prescr ibed Sub s Allowed: subs OK Medic ationGen ericName : centrum silver Not Available Not Available Not Available Ecotrin Low Strength 05/22 completed Medicati on ID: [id number] B rand Name: Ecotrin low strength Send Method: E-Prescr ibed Sub s Allowed: subs OK Medic ationGen ericName : Ecotrin low strength Not Available Not Available Not Available Crestor 05/22 completed Medicati on ID: [id number] B rand Name: crestor Send Method: E-Prescr ibed Sub s Allowed: subs OK Medic ationGen ericName : crestor Not Available Not Available Not Available Lovaza 05/22 completed Medicati on ID: [id number] B rand Name: lovaza S end Method: E-Prescr ibed Sub s Allowed: subs OK Medic ationGen ericName : lovaza Not Available Not Available Not Available Vitamin D3 50 mcg (2,000 unit) capsule 05/22 completed Medicati on ID: [id number] B rand Name: Vitamin D3 Send Method: E-Prescr ibed Sub s Allowed: subs OK Medic ationGen ericName : Vitamin D3 Not Available Not Available Not Available Flonase Allergy Relief 50 mcg/actua tion nasal spray,cali pension 05/22 completed Medicati on ID: [id number] B rand Name: Flonase Allergy Relief S end Method: E-Prescr ibed Sub s Allowed: subs OK Medic ationGen ericName : Flonase Allergy Relief Not Available Not Available Not Available Vitals None Recorded Social History Question Answer Notes LastModified by Organizat ion Details LastModified Time Tobacco Smoking Status Never Smoker Lyla clancy [place] - [facility] 12/27/2024 09:04:01 How Many Years Have You Consumed Alcohol? 50 [email or web address] Information not available 12/27/2024 What Type Of Epic Specialist Do You Use? None [email or web address] Information not available 12/27/2024 How Many Alcoholic Drinks Do You Consume Per Day On Average? 0 [email or web address] Information not available 12/27/2024 Do You Have Any Pets? Yes [email or web address] Information not available 12/27/2024 Are You Passively Exposed To Smoke? No [email or web address] Information not available 12/27/2024 Are There Any Smokers In Your House? No [email or web address] Information not available 12/27/2024 Sex: Unknown Functional Status Question Answer Note LastModified by Organizat ion Details LastModified Time How many times per week do you consume alcohol? Less than 1 time per week [email or web address] Information not available 12/27/2024 Do you use any illicit or recreational drugs? No [email or web address] Information not available 12/27/2024 Do you or have you ever used any other forms of tobacco or nicotine? No [email or web address] Information not available 12/27/2024 What is your level of alcohol consumption? Occasional [email or web address] Information not available 12/27/2024 What type of noise exposure are you exposed to? Other [email or web address] Information not available 12/27/2024 Mental Status None recorded. Family History Nothing Reported. Medical History Condition Response Arthritis Y GERD/Reflux Y High Cholesterol Y Sleep Disorder Y Heart Attack ([place]) Y Cancer Y Hypertension Y Kidney Disease Y Past Encounters Encounter ID Performer Location Encounter Start Date Encounter Closed Date Diagnosis/Indication Diagnosis SNOMED-CT Code Diagnosis ICD10 Code Diagnosis IMO Codes Diagnosis Note [id number] Tameka BROWNE [facility] 100 [place] [address] 04/05/2024 16:12:26 04/06/2024 07:09:56 Sensorineural hearing loss of bilateral ears [id number] H90.3 [id number] Tameka BROWNE [place] [address] [place] [address], [place] [address] 04/26/2024 14:52:59 04/27/2024 07:09:45 Sensorineural hearing loss of bilateral ears 652625128 H90.3 [id number] Tameka BROWNE [place] 100 [facility] 100 [place] [address] 05/17/2024 09:49:20 05/17/2024 15:59:27 Sensorineural hearing loss of bilateral ears 968157140 H90.3 [id number] Tameka BROWNE [place] [address] [place] [address] 100 [place] [address] 06/07/2024 08:49:01 06/08/2024 07:14:42 Sensorineural hearing loss of bilateral ears 112024584 H90.3 [id number] Tameka BROWNE [place] 100 [facility] [place],[facility] 100 [place] [address] 08/03/2024 08:50:13 08/04/2024 11:55:08 Sensorineural hearing loss of bilateral ears 226963798 H90.3 [id number] KIMBERLY OH MD [facility] 100 [place] [address] 12/27/2024 08:57:28 12/27/2024 09:47:31 Chronic rhinitis 46638900 J31.0 2545 Sensorineu ral hearing loss of bilateral ears 667003981 H90.3 42328457 Deviated nasal septum 12 8330979 J34.2 [id number] Health Concerns Section Related Observation LastModified by Organization Detai ls LastModified Time None Recorded Concern Status LastModified by Organization Details LastModified Time None Recorded Advance Directives Directive None Recorded Payers Insurance Date Sequence Insurance Name Policy Number Policy Miller Covered Member ID Miller Member ID Guarantor Name 12/24/2024 1 [place]IC[place]: [employer] Deejay Chambersen [id number] Deejay Gonsalez 12/24/2024 2 A[employer] (MEDICARE SUPPLEMENT) Deejay Gonsalez [id number] Deejay Gonsalez Notes Date Note Type Note Provider Name and Address Organization Details Recorded Time 04/26/2024 text/html Patient returned for their annual fitting of amplification. They reported a change in their hearing ability. There was no concern regarding the hearing devices and the system was reported to be in working order. Tameka BROWNE [address], [address], [facility] 04/26/2024 16:07:49 05/17/2024 text/html ROS as noted in the HPI Patient returned for an orientation fitting of CROS hearing system. They are a longstanding user of these devices. They reported significant difficulty communicating and understanding speech and hearing devices were ordered through a 3rd constitution party vendor to be fitted at our office. The patient had selected this make and model for their lifestyle and audiological needs. Tameka BROWNE 100 [facility] [place] [address], [place], [address], [facility] 05/17/2024 11:47:26 06/07/2024 text/html Patient returned for a follow up fitting of amplification as a longstanding user of the same style devices. Patient reported satisfaction with use and comfort. No abnormal sound quality was reported. Questions focused on use with iPhone & the NCR [employer] hipolito. VIK SHELTON, Tameka 100 [facility] [place],[facility] 100, [place], [address], [facility] - [facility] 06/07/2024 13:54:27 08/03/2024 text/html Hearing Technolo gy HistoryReported by Patient Patient returned for a fitting of amplification to discuss their ongoing communication needs and progress with amplification. They reported that there are problems with the way that the hearing devices are performing when using bluetooth. The devices are in warranty at this time. The patient reported no change in hearing or audibility. VIK SHELTON, Tameka [address] [facility] [place],[facility] 100, [place], [address], [facility] - [facility] 08/03/2024 10:53:17 12/27/2024 text/html Hx of Asymmetrical HL right compared to left with neg MRIHas allergy sx controlled with FP, cetirizine and Simply Saline twice daily KIMBERLY ASHER MD [address] [facility] [place],[facility] [address], [place], [address], [facility] - [facility] 12/27/2024 09:44:29
--- OUTSIDE RECORDS SUMMARY | 2025-07-19 21:08 | XMS_ITS | Encounter Summary ---
Author Organization [facility] Address [address] [place] [address] Care Team Providers Care Classifying Machine Operator Name Role Phone Luis Gregory MD Primary Care Provider Encounter Details Date Type Department Care Team (Late st Contact Info) Description 11/02/2024 Lab Requisition [facility] - Main Lab [address] [place] [address] [address] [place], [place] [id number] Urinary tract infection, site not specified; Calculus of kidney Social History Tobacco Use Types Packs/Day Years [...] Date/Time Associated Diagnosis Comments CULTURE URINE Routine 11/02/2024 12:00 AM EDT Urinary tract infection, site not specified Calculus of kidney documented in this encounter Results * Culture urine (11/02/2024 12:00 AM EDT) Culture, Urine <10,000 CFU/mL gram positive cocci, insignificant count, no further workup 11/03/2024 2:12 PM EDT [facility] Urine Urine specimen obtained by clean catch procedure / Unknown 11/02/2024 11/02/2024 6:31 PM EDT us Alfredo Butler LAB MICROBIOLOGY - GENERAL ORDER TOAN Final Result [facility] [address] [place] [address], documented in this encounter Visit Diagnoses Diagnosis Urinary tract infection, site not specified Calculus of kidney documented in this encounter Care Teams Classifying Machine Operator Relationship Specialty Start Date End Date Luis Gregory MD [address] [place] [address] PCP - General Internal Medicine 12/08/24 documented as of this encounter
== END 2025-07-19 15:05 | disposition home or self-care (01) ==
PROVIDERS: PCP Internal Medicine Rheumatology; Visit Provider Nurse Practitioner Family
DX: G47.50 Parasomnia, unspecified (principal); G47.33 Obstructive sleep apnea (adult) (pediatric)
CPT/HCPCS: 99213

== ENCOUNTER → 2025-07-19 13:54 | Outpatient (BNVA) | payer MEDICARE, SELFPAY | PROVIDERS: PCP Internal Medicine Rheumatology; Visit Provider Nurse Practitioner Family | DX: G47.33 Obstructive sleep apnea (adult) (pediatric) (principal); G47.50 Parasomnia, unspecified; Z99.89 Dependence on other enabling machines and devices | CPT/HCPCS: 99212 ==